=== PATIENT | female | born 1990 | race Caucasian/White ===

== ENCOUNTER 2017-12-29 06:19 | Emergency (ER) | payer OTHER ==
--- NOTE | 2017-12-29 08:38 | EDM.PDOC ---
ED HPI GENERAL MEDICAL PROBLEM - General Chief Complaint: Respiratory Problem Stated Complaint: NAUSEA, VOMITING, LETHARGY, FLU SYMTPOMS Time Seen by Provider: 12/29/17 08:36 Source of Information: Reports: Patient - History of Present Illness INITIAL COMMENTS - FREE TEXT/NARRATIVE: HISTORY AND PHYSICAL: History of present illness: [Entire family presents with similar symptoms nausea vomiting some intermittent loose stools and general malaise No fever chills sweats no chest pain shortness breath headache dizziness palpitation no bowel or urine symptoms at current, mom is had symptoms for 3 days slowly improving she had had some nausea and episodes of vomiting since Friday today is Friday she is able to keep oatmeal breakfast down without any problem she is not ill appearing and seems to be improving symptomatically after 48 hours of symptoms. This in general goes along with the father symptoms as well who symptomology is not resolved completely ] Review of systems: As per history of present illness and below otherwise all systems reviewed and negative. Past medical history: As per history of present illness and as reviewed below otherwise noncontributory. Surgical history: As per history of present illness and as reviewed below otherwise noncontributory. Social history: No reported history of drug or alcohol abuse. Family history: As per history of present illness and as reviewed below otherwise noncontributory. Physical exam: HEENT: Atraumatic, normocephalic, pupils reactive, negative for conjunctival pallor or scleral icterus, mucous membranes moist, throat clear, neck supple, nontender, trachea midline. Lungs: Clear to auscultation, breath sounds equal bilaterally, chest nontender. Heart: S1S2, regular, negative for clicks, rubs, or JVD. Abdomen: Soft, nondistended, nontender. Negative for masses or hepatosplenomegaly. Negative for costovertebral tenderness. Pelvis: Stable nontender. Genitourinary: Deferred. Rectal: Deferred. Extremities: Atraumatic, negative for cords or calf pain. Neurovascular unremarkable. Neuro: Awake, alert, oriented. Cranial nerves II through XII unremarkable. Cerebellum unremarkable. Motor and sensory unremarkable throughout. Exam nonfocal. Diagnostics: [Influenza Chest 2 views ] Therapeutics: [Rest fluids nutrition Zofran ] Impression: [Viral syndrome] Definitive disposition and diagnosis as appropriate pending reevaluation and review of above. 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: Neurological History: Reports: None Psychiatric History: Reports: None Endocrine/Metabolic History: Reports: None Hematologic History: Reports: None Oncologic (Cancer) History: Reports: None Dermatologic History: Reports: None - Infectious Disease History Infectious Disease History: Reports: None - Past Surgical History Female Surgical History: Reports: Section Social & Family History - Family History Family Medical History: Noncontributory - Tobacco Use Smoking Status *Q: Never Smoker - Recreational Drug Use Recreational Drug Use: No ED ROS GENERAL - Review of Systems Review Of Systems: ROS reveals no pertinent complaints other than HPI. ED EXAM, GENERAL - Physical Exam Exam: See Below Course - Vital Signs Last Recorded V/S: Last Vital Signs Temp 97.6 F 12/29/17 06:19 Pulse 94 12/29/17 06:19 Resp 16 12/29/17 06:19 BP 121/74 12/29/17 06:19 Pulse Ox 98 12/29/17 06:19 - Orders/Labs/Meds Orders: Active Orders 24 hr Category Date Time Status Chest 2V [CR] Stat Exams 12/29/17 06:35 Taken CULTURE STREP A CONFIRMATION [RM] Stat Lab 12/29/17 06:20 Results STREP SCRN A RAPID W CULT CONF [RM] Stat Lab 12/29/17 06:20 Results Departure - Departure Time of Disposition: 08:37 Disposition: Home, Self-Care 01 Condition: Good Clinical Impression: Viral syndrome - Discharge Information Referrals: PCP,None [Primary Care Provider] - Additional Instructions: The following information is given to patients seen in the emergency department who are being discharged to home. This information is to outline your options for follow-up care. We provide all patients seen in our emergency department with a follow-up referral. The need for follow-up, as well as the timing and circumstances, are variable depending upon the specifics of your emergency department visit. If you don't have a primary care physician on staff, we will provide you with a referral. We always advise you to contact your personal physician following an emergency department visit to inform them of the circumstance of the visit and for follow-up with them and/or the need for any referrals to a consulting specialist. The emergency department will also refer you to a specialist when appropriate. This referral assures that you have the opportunity for follow-up care with a specialist. All of these measure are taken in an effort to provide you with optimal care, which includes your follow-up. Under all circumstances we always encourage you to contact your private physician who remains a resource for coordinating your care. When calling for follow-up care, please make the office aware that this follow-up is from your recent emergency room visit. If for any reason you are refused follow-up, please contact the [facility] emergency department at and asked to speak to the emergency department charge nurse.
--- NOTE | 2017-12-29 17:16 | CR ---
EXAM DATE: 12/29/17 PATIENT'S AGE: 27 Patient: SOREN JC Facility: [place], [place] Site . Site : 1990 Study: XRay Chest [id number]/29/2018 7:17:02 AM Ordering Physician: Doctor Whitaker Final Report: INDICATION: Cough, shortness of breath. COMPARISON: none TECHNIQUE: Two view chest. FINDINGS: The lungs are clear. There is no evidence pneumothorax. The heart, mediastinum and pulmonary vessels are of normal size. There is no evidence of pleural fluid. IMPRESSION: Negative chest. Dictated by Charlie Hoffman MD @ Dec 29 2017 7:18AM (Electronic Signature) Report Signed by Proxy. CONOR
== END 2017-12-29 08:36 | disposition home or self-care (01) ==
LOC: MW.ED 06:19
DX: B34.9 Viral infection, unspecified (principal)
CPT/HCPCS: 71046; 71046-26; 87081; 87804; 87880; 99284

== ENCOUNTER 2019-02-23 09:29 | Emergency (ER) | payer OTHER ==
--- NOTE | 2019-02-23 09:50 | EDM.PDOC ---
ED HPI GENERAL MEDICAL PROBLEM - General Chief Complaint: ENT Problem Stated Complaint: SICK Time Seen by Provider: 02/23/19 09:39 - History of Present Illness INITIAL COMMENTS - FREE TEXT/NARRATIVE: HISTORY AND PHYSICAL: History of present illness: Patient 28-year-old white female sensory concern of sore throat cough congestion was also reportedly . She's had no fever chills nausea vomiting or other complaints. She did receive influenza immunization this year Review of systems: As per history of present illness and below otherwise all systems reviewed and negative. Past medical history: As per history of present illness and as reviewed below otherwise noncontributory. Surgical history: As per history of present illness and as reviewed below otherwise noncontributory. Social history: No reported history of drug or alcohol abuse. Family history: As per history of present illness and as reviewed below otherwise noncontributory. Physical exam: HEENT: Atraumatic, normocephalic, pupils reactive, negative for conjunctival pallor or scleral icterus, mucous membranes moist, throat injected, neck supple , nontender, trachea midline. Lungs: Clear to auscultation, breath sounds equal bilaterally, chest nontender. Heart: S1S2, regular, negative for clicks, rubs, or JVD. Abdomen: Soft, nondistended, nontender. Negative for masses or hepatosplenomegaly. Negative for costovertebral tenderness. Pelvis: Stable nontender. Genitourinary: Deferred. Rectal: Deferred. Extremities: Atraumatic, negative for cords or calf pain. Neurovascular unremarkable. Neuro: Awake, alert, oriented. Cranial nerves II through XII unremarkable. Cerebellum unremarkable. Motor and sensory unremarkable throughout. Exam nonfocal. Diagnostics: Rapid strep influenza screen Therapeutics: None Impression: #1 viral syndrome Definitive disposition and diagnosis as appropriate pending reevaluation and review of above. 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 ED EXAM, GENERAL - Physical Exam Exam: See Below (See dictation) Course - Vital Signs Last Recorded V/S: Last Vital Signs Temp 37.4 C 02/23/19 09:58 Pulse 99 02/23/19 09:58 Resp 16 02/23/19 09:58 BP Pulse Ox 98 02/23/19 09:58 - Orders/Labs/Meds Orders: Active Orders 24 hr Category Date Time Status CULTURE STREP A CONFIRMATION [] Stat Lab 02/23/19 10:57 Results STREP SCRN A RAPID W CULT CONF [RM] Stat Lab 02/23/19 10:57 Results Departure - Departure Time of Disposition: 09:49 Disposition: Home, Self-Care 01 Condition: Good Clinical Impression: Viral syndrome, Influenza - Discharge Information Referrals: PCP,Unknown [Primary Care Provider] - Forms: ED Department Discharge Additional Instructions: The following information is given to patients seen in the emergency department who are being discharged to home. This information is to outline your options for follow-up care. We provide all patients seen in our emergency department with a follow-up referral. The need for follow-up, as well as the timing and circumstances, are variable depending upon the specifics of your emergency department visit. If you don't have a primary care physician on staff, we will provide you with a referral. We always advise you to contact your personal physician following an emergency department visit to inform them of the circumstance of the visit and for follow-up with them and/or the need for any referrals to a consulting specialist. The emergency department will also refer you to a specialist when appropriate. This referral assures that you have the opportunity for followup care with a specialist. All of these measure are taken in an effort to provide you with optimal care, which includes your followup. Under all circumstances we always encourage you to contact your private physician who remains a resource for coordinating your care. When calling for followup care, please make the office aware that this follow-up is from your recent emergency room visit. If for any reason you are refused follow-up, please contact the [facility] emergency department at and asked to speak to the emergency department charge nurse. Push fluids Tylenol as directed Ventolin I as directed follow-up private medical doctor/DRY PASTE SUPERVISOR as needed as discussed and return as needed as discussed - My Orders Last 24 Hours: My Active Orders 02/23/19 10:57 CULTURE STREP A CONFIRMATION [RM] Stat STREP SCRN A RAPID W CULT CONF [RM] Stat - Assessment/Plan Last 24 Hours: My Active Orders 02/23/19 10:57 CULTURE STREP A CONFIRMATION [RM] Stat STREP SCRN A RAPID W CULT CONF [RM] Stat
== END 2019-02-23 12:21 | disposition home or self-care (01) ==
LOC: MW.ED 09:29
DX: J11.1 Influenza due to unidentified influenza virus with other respiratory manifestations (principal); Z79.82 Long term (current) use of aspirin; Z79.899 Other long term (current) drug therapy
CPT/HCPCS: 87081; 87804; 87880-QW; 99283

== ENCOUNTER 2019-07-12 05:20 | Inpatient (IN) | payer OTHER ==
[2019-07-12] MEDS ORDERED: Citric Acid/Sodium Citrate Solution 30 ML Cup PO ONE (05:26)
[2019-07-12] MEDS ORDERED: Sodium Chloride 0.9% 10 ML Syringe FLUSH PRN (05:26)
[2019-07-12] MEDS ORDERED: Sodium Chloride 0.9% 2.5 ML Syringe FLUSH PRN (05:26)
[2019-07-12] MEDS ORDERED: Sodium Chloride 0.9% 10 ML SDV IV PRN (05:26)
[2019-07-12] MEDS ORDERED: Ondansetron 4 MG/2 ML SDV IVPUSH PRN ×2 (05:26→08:46)
[2019-07-12] MEDS ORDERED: ceFAZolin 2 GM in Premix Bag 1 BAG IV ONE (05:26)
[2019-07-12] MEDS ORDERED: Oxytocin/0.9 % Sodium Chloride 30 UNIT/500 ML BAG IV SCH (05:30)
[2019-07-12] MEDS ORDERED: Lactated Ringers 1,000 ML IV SCH ×2 (05:30→09:00)
[2019-07-12] MEDS ORDERED: Morphine PF 10 MG/10 ML SDV ONE (07:25)
[2019-07-12] MEDS ORDERED: Oxytocin/0.9 % Sodium Chloride 30 UNIT/500 ML BAG ONE ×2 (07:25→08:40)
[2019-07-12] MEDS ORDERED: Octyl 2-Cyanoacrylate 1 Tube ONE (07:33)
--- NOTE | 2019-07-12 07:54 | PCM.PREANE ---
Preanesthetic Assessment - Anesthesia/Transfusion/Family Hx Anesthesia History: Prior Anesthesia Without Reaction (scheduled for baby with exteriorized heart, dome at [place], vertical uterine incision. No probs with this preg. PMH-neg, no allergies.) Family History of Anesthesia Reaction: No Transfusion History: No Prior Transfusion(s) Other Type of Transfusion Reaction: plan - Review of Systems General: No Symptoms Pulmonary: No Symptoms Cardiovascular: No Symptoms Gastrointestinal: No Symptoms Neurological: No Symptoms Other: Reports: None - Physical Assessment NPO Status Date: 07/11/19 Height: 5 ft 4 in Weight: 70.307 kg ASA Class: 2 Mental Status: Alert & Oriented x3 Airway Class: Mallampati = 2 Dentition: Reports: Normal Dentition (with braces) ROM/Head Extension: Full Lungs: Clear to Auscultation, Normal Respiratory Effort Cardiovascular: Regular Rate, Regular Rhythm - Lab Values: Laboratory Last Values WBC 11.44 K/uL (4.0-11.0) H 07/12/19 05:55 RBC 4.00 M/uL (4.30-5.90) L 07/12/19 05:55 Hgb 12.0 g/dL (12.0-16.0) 07/12/19 05:55 Hct 35.2 % (36.0-46.0) L 07/12/19 05:55 MCV 88.0 fL (80.0-98.0) 07/12/19 05:55 MCH 30.0 pg (27.0-32.0) 07/12/19 05:55 MCHC 34.1 g/dL (31.0-37.0) 07/12/19 05:55 RDW Std Deviation 40.4 fl (28.0-62.0) 07/12/19 05:55 RDW Coeff of [place] 13 % (11.0-15.0) 07/12/19 05:55 Plt Count 193 K/uL (150-400) 07/12/19 05:55 MPV 10.70 fL (7.40-12.00) 07/12/19 05:55 Blood Type B POSITIVE 07/12/19 05:55 Antibody Screen NEGATIVE 07/12/19 05:55 - Allergies Allergies/Adverse Reactions: Allergies Allergy/AdvReac Type Severity Reaction Status Date / Time No Known Allergies Allergy Verified 07/07/19 10:56 - Blood Blood Available: Yes - Anesthesia Plan Pre-Op Medication Ordered: None - Acknowledgements Anesthesia Type Planned: Spinal Pt an Appropriate Candidate for the Planned Anesthesia: Yes Alternatives and Risks of Anesthesia Discussed w Pt/Guardian: Yes Pt/Guardian Understands and Agrees with Anesthesia Plan: Yes PreAnesthesia Questionnaire HEENT History: Reports: None Other HEENT History: wears glasses/contacts, has dental braces Cardiovascular History: Reports: None Respiratory History: Reports: None Other Respiratory History: "mild allergy induced asthma" Gastrointestinal History: Reports: None Other Gastrointestinal History: occasional heartburn during Genitourinary History: Reports: None 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: Musculoskeletal History: Reports: Fracture Other Musculoskeletal History: hx fx ankle Neurological History: Reports: None Other Neuro History: migraines in the past Psychiatric History: Reports: None Endocrine/Metabolic History: Reports: None Hematologic History: Reports: None Immunologic History: Reports: None Oncologic (Cancer) History: Reports: None Dermatologic History: Reports: None - Infectious Disease History Infectious Disease History: Reports: None - Past Surgical History Head Surgeries/Procedures: Reports: None HEENT Surgical History: Reports: Oral Surgery Respiratory Surgical History: Reports: None Female Surgical History: Reports: Section Endocrine Surgical History: Reports: None Musculoskeletal Surgical History: Reports: None Oncologic Surgical History: Reports: None Dermatological Surgical History: Reports: None - SUBSTANCE USE Smoking Status *Q: Never Smoker Second Hand Smoke Exposure: No Recreational Drug Use History: No - HOME MEDS Home Medications: Home Meds Aspirin [Halfprin] 81 mg PO DAILY 02/23/19 [History] #103/Iron Fumarate/Fa [ ] 1 tab PO DAILY 02/23/19 [ History] Loratadine [Children's Allergy Relief] 2 tab CHEW DAILY 07/07/19 [History] Magnesium Citrate 1 tab PO DAILY 07/07/19 [History] Sertraline HCl 50 mg PO DAILY 07/07/19 [History] - CURRENT (IN HOUSE) MEDS Current Meds: Current Medications Lactated Ringer's (Ringers, Lactated) 1,000 mls @ 500 mls/hr IV BOLUS JENNIFER Last Admin: 07/12/19 05:47 Dose: 500 mls/hr Oxytocin/Sodium Chloride (Oxytocin 30 Unit/500 Ml-Ns) 30 unit in 500 mls @ 250 mls/hr IV TITRATE JENNIFER Ondansetron HCl (Zofran) 4 mg IVPUSH Q4H PRN PRN Reason: Nausea/Vomiting Sodium Chloride (Saline Flush) 10 ml FLUSH ASDIRECTED PRN PRN Reason: Keep Vein Open Sodium Chloride (Saline Flush) 2.5 ml FLUSH ASDIRECTED PRN PRN Reason: Keep Vein Open Sodium Chloride (Normal Saline) 10 ml IV ASDIRECTED PRN PRN Reason: IV Use Discontinued Medications Citric Acid/Sodium Citrate (Bicitra Solution) 30 ml PO ONETIME ONE Stop: 07/12/19 05:27 Cefazolin Sodium/Dextrose 2 gm (/ Premix) 50 mls @ 100 mls/hr IV ONETIME ONE Stop: 07/12/19 05:55 Oxytocin/Sodium Chloride (Oxytocin 30 Unit/500 Ml-Ns) Confirm Administered Dose 30 unit in 500 mls @ as directed .ROUTE .STK-MED ONE Stop: 07/12/19 07:26 Morphine Sulfate (Duramorph Pf) Confirm Administered Dose 10 mg .ROUTE .STK-MED ONE Stop: 07/12/19 07:26 Octyl Cyanoacrylate (Dermabond Advance) Confirm Administered Dose 1 applic .ROUTE .STK-MED ONE Stop: 07/12/19 07:34
[2019-07-12] MEDS ORDERED: Ondansetron 4 MG/2 ML SDV ONE (08:05)
[2019-07-12] MEDS ORDERED: Nalbuphine 10 MG/1 ML Vial IVPUSH PRN (08:20)
[2019-07-12] MEDS ORDERED: Acetaminophen/oxyCODONE 325-5 MG Tab PO PRN ×2 (08:20→08:46)
[2019-07-12] MEDS ORDERED: Phenylephrine/Normal Saline 100 MCG/ML 10 ML Syringe ONE (08:29)
[2019-07-12] MEDS ORDERED: ceFAZolin 1 GM Vial ONE (08:37)
[2019-07-12] MEDS ORDERED: Lanolin 100% Cream 7 GM Tube TOP PRN (08:46)
[2019-07-12] MEDS ORDERED: diphenhydrAMINE 50 MG/ML SDV IVPUSH PRN (08:46)
[2019-07-12] MEDS ORDERED: Bisacodyl 10 MG Supp RECTAL PRN (08:46)
--- NOTE | 2019-07-12 09:07 | PCM.OPNOTE ---
- General Post-Op/Procedure Note Date of Surgery/Procedure: 07/12/19 Findings: LTCS delivery of liveborn male . Weight 2790. Apgars 8/9. 3vc. Placenta intact. Pre Op Diagnosis: 37/0 IUP scheduled LTCS s/p classical C section Post-Op Diagnosis: same Anesthesia Technique: Spinal Primary Surgeon: Madai Hodge Glass Cutter: Angy Marshall Role of Glass Cutter: 4th year medical student Fluid Replacement, Intraop: 1,500 Output, Urine Amount: 400 EBL in mLs: 700 Condition: Good
[2019-07-12] MEDS: Ketorolac 30 MG/ML SDV IVPUSH SCH ×3 (09:29→21:00)
[2019-07-12] MEDS: Docusate Sodium 100 MG Cap PO SCH ×2 (10:07→21:00)
--- NOTE | 2019-07-12 11:26 | PCM.POSTAN ---
POST ANESTHESIA ASSESSMENT - MENTAL STATUS Mental Status: Alert, Oriented - RESPIRATORY Respiratory Status: Respiratory Rate WNL, Airway Patent, O2 Saturation Stable - CARDIOVASCULAR CV Status: Pulse Rate WNL, Blood Pressure Stable - GASTROINTESTINAL GI Status: No Symptoms - POST OP HYDRATION Hydration Status: Adequate & Stable
--- NOTE | 2019-07-12 11:44 | OR ---
SURGEON: Madai Hodge M.D. DATE OF PROCEDURE: 07/12/2019 PREOPERATIVE DIAGNOSIS: 37-week intrauterine , breech presentation, prior classical incision. POSTOPERATIVE DIAGNOSIS: 37-week intrauterine , breech presentation, prior classical incision. PROCEDURE: Repeat low-transverse section. PRIMARY SURGEON: Madai Hodge M.D. SCCM ADMINISTRATOR: ASHLEIGH Sánchez. ANESTHESIA: Spinal. ESTIMATED BLOOD LOSS: 400 mL. FLUIDS: 1500 mL crystalloid. URINE OUTPUT: 400 mL. FINDINGS: Live born female. score of 8 and 9, weighing 2790 g. Pavan breech presentation. Very thin anterior uterine wall from prior classical incision. Normal-appearing tubes and ovaries. No significant adhesions. COMPLICATIONS: None known. DISPOSITION: Stable to recovery. BRIEF HISTORY: This is a 29-year-old female. She is G2, P1-0-0-1, who presents at 37 weeks gestation, having received 2 doses of steroids with a prior classical delivery, which was performed due to cardiac anomaly for her last baby. She has otherwise had uncomplicated care. She has had a normal echocardiogram during this . She presents for repeat delivery with risks discussed including bleeding, infection, injury to bowel, bladder, blood vessels or other organs; risk of thromboembolic event and risk of anesthesia. Understanding all these risks, she does desire to proceed. DESCRIPTION OF PROCEDURE: With the patient in left tilt position under adequate spinal analgesia, the abdomen was prepped with chlorhexidine and draped in the usual fashion for abdominal surgery. SCDs were in place. Ortiz catheter had been placed. An appropriate time-out was held. She received 2 g of Ancef IV. After documentation of adequate analgesia with the abdomen appropriately prepped and draped, a transverse curvilinear incision was made 2 cm cephalad from the pubic symphysis and carried through the subcutaneous tissue to the fascia, which was scored transversely in the midline. The fascial incision was extended laterally using curved Gavin scissors. The fascia was elevated from the underlying rectus muscle using sharp and blunt dissection. The rectus muscles were bluntly . A finger was used to enter the peritoneal cavity. The incision was extended using sharp and blunt dissection. The Beni O retractor was placed. The visceroperitoneum was incised inferior to the previous vertical incision and adequate bladder flap was developed. A transverse curvilinear incision was made over the lower uterine segment with a scalpel and extended using blunt dissection. The breech was delivered via the uterine incision and the arms were swept across the chest. The head was flexed and the was delivered via the uterine incision. The was bulb suctioned by nose and mouth. The cord was clamped x2 and cut. The infant was handed to the nurse in attendance at delivery. The infant was a liveborn female. score was 8 and 9, weighing 2790 g. Cord blood was collected for cord ABGs as well as routine cord blood sampling. Pitocin was initiated after delivery of the to assist with delivery of the placenta, which was delivered with fundal massage. The uterus was cleaned with a dry laparotomy tape. The cervix was opened with a ring forceps. The prior vertical incision had extended approximately 4-5 cm from the transverse incision and this was closed with 2 layers of a baseball-type suture of 0 Polysorb followed by a running lock suture of the transverse incision with a 2nd imbricating layer using 0 Polysorb. This being completed, the uterine incision was inspected and was hemostatic. The tubes and ovaries were examined and were normal. The uterine incision was again inspected, it remained hemostatic; therefore, the Beni O retractor was removed. Final inspection revealed hemostasis and the rectus muscle and peritoneum were loosely approximated in the midline using a running mattress suture of 0 Polysorb. The posterior aspect of the fascia was inspected. Any areas of bleeding that were noted were cauterized. The fascia was closed with a running suture of 0 Polysorb. The subcutaneous tissue was irrigated. Any areas of bleeding that were noted were cauterized. The deep subcutaneous tissue was closed with a running suture of 0 Polysorb. Skin was closed with a running subcuticular suture of 3-0 Monocryl followed by Dermabond. Final sponge, needle, and instrument counts were reported as correct. There were no known complications. Mother and are in LDR in good condition with recovery room nurse. MARISSA GALAVIZ /[id number]
[2019-07-13] MEDS: Ketorolac 30 MG/ML SDV IVPUSH SCH ×2 (03:30→09:12)
--- NOTE | 2019-07-13 07:41 | PCM.PNPP ---
<Angy Marshall - Last Filed: 07/13/19 07:37> - General Info Date of Service: 07/13/19 Functional Status: Reports: Pain Controlled, Tolerating Diet, Ambulating, Incentive Spirometry - Review of Systems General: Reports: No Symptoms. Denies: Fever, Chills HEENT: Reports: No Symptoms. Denies: Headaches Pulmonary: Reports: No Symptoms. Denies: Shortness of Breath Cardiovascular: Reports: No Symptoms. Denies: Chest Pain, Palpitations Gastrointestinal: Reports: Abdominal Pain (incisional pain worse while standing up but better after ambulating. Pain meds help) Genitourinary: Reports: No Symptoms. Denies: Dysuria Musculoskeletal: Reports: No Symptoms Skin: Reports: No Symptoms Neurological: Reports: No Symptoms Psychiatric: Reports: No Symptoms - General Info Date of Service: 07/13/19 - Patient Data Vital Signs - Most Recent: Last Vital Signs Temp 97.7 F 07/13/19 04:00 Pulse 75 07/13/19 04:00 Resp 17 07/13/19 04:00 BP 104/53 L 07/13/19 04:00 Pulse Ox 94 L 07/13/19 07:00 Weight - Most Recent: 70.307 kg I&O - Last 24 Hours: Intake & Output 07/12/19 07/13/19 07/13/19 22:59 06:59 14:59 Output Total 1355 1150 400 Balance -1355 -1150 -400 Lab Results - Last 24 Hours: Laboratory Results - last 24 hr 07/12/19 07/13/19 Range/Units 08:15 06:03 Hgb 10.8 L (12.0-16.0) g/dL Hct 32.5 L (36.0-46.0) % Cord ABG pH 7.212 (7.18-7.38) Cord ABG Base Excess -5 (-10--2) Cord VBG pH 7.273 (7.25-7.45) Cord VBG Base Excess -5 (-10--2) Med Orders - Current: Current Medications Bisacodyl (Dulcolax) 10 mg RECTAL ONETIME PRN PRN Reason: Constipation Diphenhydramine HCl (Benadryl) 25 mg IVPUSH Q6H PRN PRN Reason: Itching or Nausea Docusate Sodium (Colace) 100 mg PO BID [facility] Last Admin: 07/12/19 21:00 Dose: 100 mg Emollient Ointment (Lansinoh Hpa) 0 gm TOP ASDIRECTED PRN PRN Reason: Sore Nipples Lactated Ringer's (Ringers, Lactated) 1,000 mls @ 125 mls/hr IV ASDIRECTED [facility] Ibuprofen (Motrin) 800 mg PO Q8H PRN PRN Reason: mild pain or fever Ketorolac Tromethamine (Toradol) 30 mg IVPUSH Q6H [facility] Stop: 07/13/19 09:01 Last Admin: 07/13/19 03:30 Dose: 30 mg Nalbuphine HCl (Nubain) 2.5 mg IVPUSH Q3H PRN PRN Reason: Pruritis Stop: 07/13/19 08:21 Last Admin: 07/12/19 10:05 Dose: 2.5 mg Ondansetron HCl (Zofran) 4 mg IVPUSH Q4H PRN PRN Reason: Nausea/Vomiting Oxycodone/Acetaminophen (Percocet 325-5 Mg) 1 tab PO ONETIME PRN PRN Reason: Pain (moderate 4-6) Oxycodone/Acetaminophen (Percocet 325-5 Mg) 1 tab PO Q4H PRN PRN Reason: Pain (moderate 4-6) Oxycodone/Acetaminophen (Percocet 325-5 Mg) 2 tab PO Q4H PRN PRN Reason: Pain (moderate 4-6) Discontinued Medications Cefazolin Sodium (Ancef) Confirm Administered Dose 2 gm .ROUTE .STK-MED ONE Stop: 07/12/19 08:38 Citric Acid/Sodium Citrate (Bicitra Solution) 30 ml PO ONETIME ONE Stop: 07/12/19 05:27 Cefazolin Sodium/Dextrose 2 gm (/ Premix) 50 mls @ 100 mls/hr IV ONETIME ONE Stop: 07/12/19 05:55 Lactated Ringer's (Ringers, Lactated) 1,000 mls @ 500 mls/hr IV BOLUS [facility] Last Admin: 07/12/19 05:47 Dose: 500 mls/hr Oxytocin/Sodium Chloride (Oxytocin 30 Unit/500 Ml-Ns) 30 unit in 500 mls @ 250 mls/hr IV TITRATE [facility] Oxytocin/Sodium Chloride (Oxytocin 30 Unit/500 Ml-Ns) Confirm Administered Dose 30 unit in 500 mls @ as directed .ROUTE .STK-MED ONE Stop: 07/12/19 07:26 Oxytocin/Sodium Chloride (Oxytocin 30 Unit/500 Ml-Ns) Confirm Administered Dose 30 unit in 500 mls @ as directed .ROUTE .STK-MED ONE Stop: 07/12/19 08:41 Morphine Sulfate (Duramorph Pf) Confirm Administered Dose 10 mg .ROUTE .STK-MED ONE Stop: 07/12/19 07:26 Octyl Cyanoacrylate (Dermabond Advance) Confirm Administered Dose 1 applic .ROUTE .STK-MED ONE Stop: 07/12/19 07:34 Ondansetron HCl (Zofran) 4 mg IVPUSH Q4H PRN PRN Reason: Nausea/Vomiting Ondansetron HCl (Zofran) Confirm Administered Dose 4 mg .ROUTE .STK-MED ONE Stop: 07/12/19 08:06 Phenylephrine HCl (Phenylephrine In Ns 100 Mcg/Ml) Confirm Administered Dose 1 mg .ROUTE .STK-MED ONE Stop: 07/12/19 08:30 Sodium Chloride (Saline Flush) 10 ml FLUSH ASDIRECTED PRN PRN Reason: Keep Vein Open Sodium Chloride (Saline Flush) 2.5 ml FLUSH ASDIRECTED PRN PRN Reason: Keep Vein Open Sodium Chloride (Normal Saline) 10 ml IV ASDIRECTED PRN PRN Reason: IV Use - Infant Interaction Disposition, : [place] in Room with Family Interaction: Holding Infant Infant Feeding: Breastfed Infant; Nursed Well Support Person: - Recovery Exam Fundal Tone: Firm Fundal Level: 3 Fingerbreadths Below Umbilicus Fundal Placement: Midline Lochia Amount: Scant Lochia Color: Rubra/Red Perineum Description: Intact, Minimal Bruising/Swelling Episiotomy/Laceration: None Bladder Status: Voiding Urinary Elimination: Voided - Exam General: Alert, Oriented HEENT: Pupils Equal Neck: Supple Lungs: Clear to Auscultation, Normal Respiratory Effort Cardiovascular: Regular Rate, Regular Rhythm GI/Abdominal Exam: Normal Bowel Sounds, Soft, Non-Tender, No Organomegaly, No Distention, No Abnormal Bruit, No Mass, Pelvis Stable Extremities: Normal Inspection, Normal Range of Motion, Non-Tender, No Pedal Edema, Normal Capillary Refill Skin: Warm, Dry, Intact Wound/Incisions: Dressing Dry and Intact Neurological: No New Focal Deficit Psy/Mental Status: Alert, Normal Affect, Normal Mood - Problem List & Annotations (1) Delivery by section SNOMED Code(s): 321122176 Code(s): IFF6412 - Status: Acute Current Visit: Yes - Problem List Review Problem List Initiated/Reviewed/Updated: Yes - Assessment Assessment:: POD1 s/p LTCS at 37 weeks for prior history of classical C section well Pain controlled Moderate lochia rubra - Plan Plan:: Regular diet Pain control PRN Incentive spirometry Encourage ambulation Routine care Anticipate discharge POD2-3 <Madai Hodge - Last Filed: 07/13/19 08:42> - Patient Data Vital Signs - Most Recent: Last Vital Signs Temp 36.5 C 07/13/19 04:00 Pulse 75 07/13/19 04:00 Resp 17 07/13/19 04:00 BP 104/53 L 07/13/19 04:00 Pulse Ox 94 L 07/13/19 07:00 I&O - Last 24 Hours: Intake & Output 07/12/19 07/13/19 07/13/19 22:59 06:59 14:59 Output Total 1355 1150 400 Balance -1355 -1150 -400 Lab Results - Last 24 Hours: Laboratory Results - last 24 hr 07/12/19 07/13/19 Range/Units 08:15 06:03 Hgb 10.8 L (12.0-16.0) g/dL Hct 32.5 L (36.0-46.0) % Cord ABG pH 7.212 (7.18-7.38) Cord ABG Base Excess -5 (-10--2) Cord VBG pH 7.273 (7.25-7.45) Cord VBG Base Excess -5 (-10--2) Med Orders - Current: Current Medications Bisacodyl (Dulcolax) 10 mg RECTAL ONETIME PRN PRN Reason: Constipation Diphenhydramine HCl (Benadryl) 25 mg IVPUSH Q6H PRN PRN Reason: Itching or Nausea Docusate Sodium (Colace) 100 mg PO BID [facility] Last Admin: 07/12/19 21:00 Dose: 100 mg Emollient Ointment (Lansinoh Hpa) 0 gm TOP ASDIRECTED PRN PRN Reason: Sore Nipples Lactated Ringer's (Ringers, Lactated) 1,000 mls @ 125 mls/hr IV ASDIRECTED [facility] Ibuprofen (Motrin) 800 mg PO Q8H PRN PRN Reason: mild pain or fever Ketorolac Tromethamine (Toradol) 30 mg IVPUSH Q6H [facility] Stop: 07/13/19 09:01 Last Admin: 07/13/19 03:30 Dose: 30 mg Ondansetron HCl (Zofran) 4 mg IVPUSH Q4H PRN PRN Reason: Nausea/Vomiting Oxycodone/Acetaminophen (Percocet 325-5 Mg) 1 tab PO ONETIME PRN PRN Reason: Pain (moderate 4-6) Oxycodone/Acetaminophen (Percocet 325-5 Mg) 1 tab PO Q4H PRN PRN Reason: Pain (moderate 4-6) Oxycodone/Acetaminophen (Percocet 325-5 Mg) 2 tab PO Q4H PRN PRN Reason: Pain (moderate 4-6) Discontinued Medications Cefazolin Sodium (Ancef) Confirm Administered Dose 2 gm .ROUTE .STK-MED ONE Stop: 07/12/19 08:38 Citric Acid/Sodium Citrate (Bicitra Solution) 30 ml PO ONETIME ONE Stop: 07/12/19 05:27 Cefazolin Sodium/Dextrose 2 gm (/ Premix) 50 mls @ 100 mls/hr IV ONETIME ONE Stop: 07/12/19 05:55 Lactated Ringer's (Ringers, Lactated) 1,000 mls @ 500 mls/hr IV BOLUS [facility] Last Admin: 07/12/19 05:47 Dose: 500 mls/hr Oxytocin/Sodium Chloride (Oxytocin 30 Unit/500 Ml-Ns) 30 unit in 500 mls @ 250 mls/hr IV TITRATE [facility] Oxytocin/Sodium Chloride (Oxytocin 30 Unit/500 Ml-Ns) Confirm Administered Dose 30 unit in 500 mls @ as directed .ROUTE .STK-MED ONE Stop: 07/12/19 07:26 Oxytocin/Sodium Chloride (Oxytocin 30 Unit/500 Ml-Ns) Confirm Administered Dose 30 unit in 500 mls @ as directed .ROUTE .STK-MED ONE Stop: 07/12/19 08:41 Morphine Sulfate (Duramorph Pf) Confirm Administered Dose 10 mg .ROUTE .STK-MED ONE Stop: 07/12/19 07:26 Nalbuphine HCl (Nubain) 2.5 mg IVPUSH Q3H PRN PRN Reason: Pruritis Stop: 07/13/19 08:21 Last Admin: 07/12/19 10:05 Dose: 2.5 mg Octyl Cyanoacrylate (Dermabond Advance) Confirm Administered Dose 1 applic .ROUTE .STK-MED ONE Stop: 07/12/19 07:34 Ondansetron HCl (Zofran) 4 mg IVPUSH Q4H PRN PRN Reason: Nausea/Vomiting Ondansetron HCl (Zofran) Confirm Administered Dose 4 mg .ROUTE .STK-MED ONE Stop: 07/12/19 08:06 Phenylephrine HCl (Phenylephrine In Ns 100 Mcg/Ml) Confirm Administered Dose 1 mg .ROUTE .STK-MED ONE Stop: 07/12/19 08:30 Sodium Chloride (Saline Flush) 10 ml FLUSH ASDIRECTED PRN PRN Reason: Keep Vein Open Sodium Chloride (Saline Flush) 2.5 ml FLUSH ASDIRECTED PRN PRN Reason: Keep Vein Open Sodium Chloride (Normal Saline) 10 ml IV ASDIRECTED PRN PRN Reason: IV Use - Problem List & Annotations (1) Previous delivery affecting , delivered SNOMED Code(s): 606470933, 189699605 Code(s): O34.219 - MATERNAL CARE FOR UNSP TYPE SCAR FROM PREVIOUS DEL Status: Acute Current Visit: Yes - Problem List Review Problem List Initiated/Reviewed/Updated: Yes - My Orders Last 24 Hours: My Active Orders 07/12/19 08:46 Acetaminophen/oxyCODONE [Percocet 325-5 MG] 1 tab PO Q4H PRN Acetaminophen/oxyCODONE [Percocet 325-5 MG] 2 tab PO Q4H PRN Bisacodyl [Dulcolax] 10 mg RECTAL ONETIME PRN Ibuprofen [Motrin] 800 mg PO Q8H PRN Lanolin [Lansinoh HPA] See Dose Instructions TOP ASDIRECTED PRN Ondansetron [Zofran] 4 mg IVPUSH Q4H PRN diphenhydrAMINE [Benadryl] 25 mg IVPUSH Q6H PRN Abdominal Binder [OM.PC] Urgent Resuscitation Status Routine 07/12/19 08:47 Patient Status [ADT] Routine Ambulate [RC] PER UNIT ROUTINE Antiembolic Devices [RC] PER UNIT ROUTINE Communication Order [RC] PER UNIT ROUTINE Communication Order [RC] PER UNIT ROUTINE Communication Order [RC] Per Unit Routine Intake and Output [RC] Q12H May Shower [RC] ASDIRECTED RT Incentive Spirometry [RC] Q2HWA Vital Signs [RC] PER UNIT ROUTINE Assess Lochia [WOMSER] Per Unit Routine Assess Uterine Involution [WOMSER] Per Unit Routine Breast Pump [WOMSER] Per Unit Routine Peripheral IV Discontinue [OM.PC] Routine Sequential Compression Device [OM.PC] Per Unit Routine 07/12/19 08:48 Notify Provider Intake and Out [RC] ASDIRECTED Notify Provider Vital Signs [RC] ASDIRECTED 07/12/19 09:00 Docusate Sodium [Colace] 100 mg PO BID Ketorolac [Toradol] 30 mg IVPUSH Q6H Lactated Ringers [Ringers, Lactated] 1,000 ml IV ASDIRECTED 07/12/19 Lunch Regular Diet [DIET] - Assessment Assessment:: Patient was seen and examined by me and I agree with above.
[2019-07-13] MEDS: Docusate Sodium 100 MG Cap PO SCH ×2 (09:12→20:53)
[2019-07-13] MEDS: Acetaminophen/oxyCODONE 325-5 MG Tab PO PRN ×4 (10:47→20:53)
[2019-07-13] MEDS: Ibuprofen 800 MG Tab PO PRN (17:43)
[2019-07-14] MEDS: Ibuprofen 800 MG Tab PO PRN (02:24)
[2019-07-14] MEDS: Acetaminophen/oxyCODONE 325-5 MG Tab PO PRN ×2 (04:56→09:43)
--- NOTE | 2019-07-14 07:24 | PCM.PNPP ---
<Angy Marshall - Last Filed: 07/14/19 07:22> - General Info Date of Service: 07/14/19 Functional Status: Reports: Pain Controlled - Review of Systems General: Reports: No Symptoms. Denies: Fever, Chills HEENT: Reports: No Symptoms. Denies: Headaches Pulmonary: Reports: No Symptoms. Denies: Shortness of Breath Cardiovascular: Reports: No Symptoms. Denies: Chest Pain, Palpitations Gastrointestinal: Reports: Abdominal Pain (Mild incisional pain when ambulating ; moderate cramping with ) Genitourinary: Reports: No Symptoms. Denies: Dysuria Musculoskeletal: Reports: No Symptoms Skin: Reports: No Symptoms Neurological: Reports: No Symptoms Psychiatric: Reports: No Symptoms - General Info Date of Service: 07/14/19 - Patient Data Vital Signs - Most Recent: Last Vital Signs Temp 97.7 F 07/14/19 04:00 Pulse 81 07/14/19 04:00 Resp 15 07/14/19 04:00 BP 114/66 07/14/19 04:00 Pulse Ox 94 L 07/14/19 04:00 Weight - Most Recent: 70.307 kg Med Orders - Current: Current Medications Bisacodyl (Dulcolax) 10 mg RECTAL ONETIME PRN PRN Reason: Constipation Diphenhydramine HCl (Benadryl) 25 mg IVPUSH Q6H PRN PRN Reason: Itching or Nausea Docusate Sodium (Colace) 100 mg PO BID [facility] Last Admin: 07/13/19 20:53 Dose: 100 mg Emollient Ointment (Lansinoh Hpa) 0 gm TOP ASDIRECTED PRN PRN Reason: Sore Nipples Last Admin: 07/13/19 10:07 Dose: 7 gm Lactated Ringer's (Ringers, Lactated) 1,000 mls @ 125 mls/hr IV ASDIRECTED [facility] Ibuprofen (Motrin) 800 mg PO Q8H PRN PRN Reason: mild pain or fever Last Admin: 07/14/19 02:24 Dose: 800 mg Ondansetron HCl (Zofran) 4 mg IVPUSH Q4H PRN PRN Reason: Nausea/Vomiting Oxycodone/Acetaminophen (Percocet 325-5 Mg) 1 tab PO ONETIME PRN PRN Reason: Pain (moderate 4-6) Oxycodone/Acetaminophen (Percocet 325-5 Mg) 1 tab PO Q4H PRN PRN Reason: Pain (moderate 4-6) Last Admin: 07/14/19 04:56 Dose: 1 tab Oxycodone/Acetaminophen (Percocet 325-5 Mg) 2 tab PO Q4H PRN PRN Reason: Pain (moderate 4-6) Discontinued Medications Cefazolin Sodium (Ancef) Confirm Administered Dose 2 gm .ROUTE .STK-MED ONE Stop: 07/12/19 08:38 Citric Acid/Sodium Citrate (Bicitra Solution) 30 ml PO ONETIME ONE Stop: 07/12/19 05:27 Cefazolin Sodium/Dextrose 2 gm (/ Premix) 50 mls @ 100 mls/hr IV ONETIME ONE Stop: 07/12/19 05:55 Lactated Ringer's (Ringers, Lactated) 1,000 mls @ 500 mls/hr IV BOLUS [facility] Last Admin: 07/12/19 05:47 Dose: 500 mls/hr Oxytocin/Sodium Chloride (Oxytocin 30 Unit/500 Ml-Ns) 30 unit in 500 mls @ 250 mls/hr IV TITRATE [facility] Oxytocin/Sodium Chloride (Oxytocin 30 Unit/500 Ml-Ns) Confirm Administered Dose 30 unit in 500 mls @ as directed .ROUTE .STK-MED ONE Stop: 07/12/19 07:26 Oxytocin/Sodium Chloride (Oxytocin 30 Unit/500 Ml-Ns) Confirm Administered Dose 30 unit in 500 mls @ as directed .ROUTE .STK-MED ONE Stop: 07/12/19 08:41 Ketorolac Tromethamine (Toradol) 30 mg IVPUSH Q6H [facility] Stop: 07/13/19 09:01 Last Admin: 07/13/19 09:12 Dose: 30 mg Morphine Sulfate (Duramorph Pf) Confirm Administered Dose 10 mg .ROUTE .STK-MED ONE Stop: 07/12/19 07:26 Nalbuphine HCl (Nubain) 2.5 mg IVPUSH Q3H PRN PRN Reason: Pruritis Stop: 07/13/19 08:21 Last Admin: 07/12/19 10:05 Dose: 2.5 mg Octyl Cyanoacrylate (Dermabond Advance) Confirm Administered Dose 1 applic .ROUTE .STK-MED ONE Stop: 07/12/19 07:34 Ondansetron HCl (Zofran) 4 mg IVPUSH Q4H PRN PRN Reason: Nausea/Vomiting Ondansetron HCl (Zofran) Confirm Administered Dose 4 mg .ROUTE .STK-MED ONE Stop: 07/12/19 08:06 Phenylephrine HCl (Phenylephrine In Ns 100 Mcg/Ml) Confirm Administered Dose 1 mg .ROUTE .STK-MED ONE Stop: 07/12/19 08:30 Sodium Chloride (Saline Flush) 10 ml FLUSH ASDIRECTED PRN PRN Reason: Keep Vein Open Sodium Chloride (Saline Flush) 2.5 ml FLUSH ASDIRECTED PRN PRN Reason: Keep Vein Open Sodium Chloride (Normal Saline) 10 ml IV ASDIRECTED PRN PRN Reason: IV Use - Infant Interaction Disposition, : in Room with Family Interaction: Holding Infant Feeding: Breastfed Infant; Nursed Well Support Person: - Recovery Exam Fundal Tone: Firm Fundal Level: 3 Fingerbreadths Below Umbilicus Fundal Placement: Midline Lochia Amount: Scant Lochia Color: Rubra/Red Perineum Description: Intact, Minimal Bruising/Swelling Episiotomy/Laceration: None Bladder Status: Voiding Urinary Elimination: Voided - Exam General: Alert, Oriented HEENT: Pupils Equal Neck: Supple Lungs: Clear to Auscultation, Normal Respiratory Effort Cardiovascular: Regular Rate, Regular Rhythm GI/Abdominal Exam: Normal Bowel Sounds, Soft, Non-Tender, No Organomegaly, No Distention, No Abnormal Bruit, No Mass, Pelvis Stable Extremities: Normal Inspection, Normal Range of Motion, Non-Tender, No Pedal Edema, Normal Capillary Refill Skin: Warm, Dry, Intact Wound/Incisions: Healing Well Neurological: No New Focal Deficit Psy/Mental Status: Alert, Normal Affect, Normal Mood - Problem List & Annotations (1) Delivery by section SNOMED Code(s): 535630777 Code(s): TFM8000 - Status: Acute Current Visit: Yes - Problem List Review Problem List Initiated/Reviewed/Updated: Yes - Assessment Assessment:: POD2 well Pain well controlled Minimal lochia rubra Would like to discharge home today - Plan Plan:: Regular diet Pain control PRN Incentive spirometry Encourage ambulation Routine care Anticipate discharge POD2-3 <Madai Hodge - Last Filed: 07/14/19 08:00> - Patient Data Vital Signs - Most Recent: Last Vital Signs Temp 36.5 C 07/14/19 04:00 Pulse 81 07/14/19 04:00 Resp 15 07/14/19 04:00 BP 114/66 07/14/19 04:00 Pulse Ox 94 L 07/14/19 04:00 Med Orders - Current: Current Medications Bisacodyl (Dulcolax) 10 mg RECTAL ONETIME PRN PRN Reason: Constipation Diphenhydramine HCl (Benadryl) 25 mg IVPUSH Q6H PRN PRN Reason: Itching or Nausea Docusate Sodium (Colace) 100 mg PO BID [facility] Last Admin: 07/13/19 20:53 Dose: 100 mg Emollient Ointment (Lansinoh Hpa) 0 gm TOP ASDIRECTED PRN PRN Reason: Sore Nipples Last Admin: 07/13/19 10:07 Dose: 7 gm Lactated Ringer's (Ringers, Lactated) 1,000 mls @ 125 mls/hr IV ASDIRECTED [facility] Ibuprofen (Motrin) 800 mg PO Q8H PRN PRN Reason: mild pain or fever Last Admin: 07/14/19 02:24 Dose: 800 mg Ondansetron HCl (Zofran) 4 mg IVPUSH Q4H PRN PRN Reason: Nausea/Vomiting Oxycodone/Acetaminophen (Percocet 325-5 Mg) 1 tab PO ONETIME PRN PRN Reason: Pain (moderate 4-6) Oxycodone/Acetaminophen (Percocet 325-5 Mg) 1 tab PO Q4H PRN PRN Reason: Pain (moderate 4-6) Last Admin: 07/14/19 04:56 Dose: 1 tab Oxycodone/Acetaminophen (Percocet 325-5 Mg) 2 tab PO Q4H PRN PRN Reason: Pain (moderate 4-6) Discontinued Medications Cefazolin Sodium (Ancef) Confirm Administered Dose 2 gm .ROUTE .STK-MED ONE Stop: 07/12/19 08:38 Citric Acid/Sodium Citrate (Bicitra Solution) 30 ml PO ONETIME ONE Stop: 07/12/19 05:27 Cefazolin Sodium/Dextrose 2 gm (/ Premix) 50 mls @ 100 mls/hr IV ONETIME ONE Stop: 07/12/19 05:55 Lactated Ringer's (Ringers, Lactated) 1,000 mls @ 500 mls/hr IV BOLUS [facility] Last Admin: 07/12/19 05:47 Dose: 500 mls/hr Oxytocin/Sodium Chloride (Oxytocin 30 Unit/500 Ml-Ns) 30 unit in 500 mls @ 250 mls/hr IV TITRATE [facility] Oxytocin/Sodium Chloride (Oxytocin 30 Unit/500 Ml-Ns) Confirm Administered Dose 30 unit in 500 mls @ as directed .ROUTE .STK-MED ONE Stop: 07/12/19 07:26 Oxytocin/Sodium Chloride (Oxytocin 30 Unit/500 Ml-Ns) Confirm Administered Dose 30 unit in 500 mls @ as directed .ROUTE .STK-MED ONE Stop: 07/12/19 08:41 Ketorolac Tromethamine (Toradol) 30 mg IVPUSH Q6H [facility] Stop: 07/13/19 09:01 Last Admin: 07/13/19 09:12 Dose: 30 mg Morphine Sulfate (Duramorph Pf) Confirm Administered Dose 10 mg .ROUTE .STK-MED ONE Stop: 07/12/19 07:26 Nalbuphine HCl (Nubain) 2.5 mg IVPUSH Q3H PRN PRN Reason: Pruritis Stop: 07/13/19 08:21 Last Admin: 07/12/19 10:05 Dose: 2.5 mg Octyl Cyanoacrylate (Dermabond Advance) Confirm Administered Dose 1 applic .ROUTE .STK-MED ONE Stop: 07/12/19 07:34 Ondansetron HCl (Zofran) 4 mg IVPUSH Q4H PRN PRN Reason: Nausea/Vomiting Ondansetron HCl (Zofran) Confirm Administered Dose 4 mg .ROUTE .STK-MED ONE Stop: 07/12/19 08:06 Phenylephrine HCl (Phenylephrine In Ns 100 Mcg/Ml) Confirm Administered Dose 1 mg .ROUTE .STK-MED ONE Stop: 07/12/19 08:30 Sodium Chloride (Saline Flush) 10 ml FLUSH ASDIRECTED PRN PRN Reason: Keep Vein Open Sodium Chloride (Saline Flush) 2.5 ml FLUSH ASDIRECTED PRN PRN Reason: Keep Vein Open Sodium Chloride (Normal Saline) 10 ml IV ASDIRECTED PRN PRN Reason: IV Use - Problem List & Annotations (1) Previous delivery affecting , delivered SNOMED Code(s): 392732149, 998586254 Code(s): O34.219 - MATERNAL CARE FOR UNSP TYPE SCAR FROM PREVIOUS DEL Status: Acute Current Visit: Yes - Problem List Review Problem List Initiated/Reviewed/Updated: Yes - Assessment Assessment:: Patient was seen and examined by me and I agree with above. Discharge instructions reviewed, however baby' bilirubin is high risk, if baby stays will hold discharge until tomorrow.
[2019-07-14] MEDS: Docusate Sodium 100 MG Cap PO SCH (09:43)
== END 2019-07-14 10:45 | disposition home or self-care (01) | DRG 788 ==
LOC: MW.OB 05:20
PROVIDERS: ADMIT Obstetrics & Gynecology; ATTEND Obstetrics & Gynecology
PROC: 10D00Z1 Extraction of Products of Conception, Low, Open Approach (ICD-10-PCS; principal; 2019-07-12)
DX: O32.1XX0 Maternal care for breech presentation, not applicable or unspecified (principal); O34.211 Maternal care for low transverse scar from previous cesarean delivery; Z3A.37 37 weeks gestation of pregnancy; Z37.0 Single live birth
CPT/HCPCS: 01961; 36415; 59025; 82803; 85014; 85018; 85027; 86850; 86900; 86901; A9270-GY; J0690; J1885; J2270; J2300; J2370; J2405; J2590; J7120

== ENCOUNTER 2020-01-13 11:19 | Emergency (ER) | payer OTHER ==
--- NOTE | 2020-01-13 12:46 | EDM.PDOC ---
ED HPI GENERAL MEDICAL PROBLEM - General Chief Complaint: Respiratory Problem Stated Complaint: FLU SYMPTOMS Time Seen by Provider: 01/13/20 12:39 Source of Information: Reports: Patient History Limitations: Reports: No Limitations - History of Present Illness INITIAL COMMENTS - FREE TEXT/NARRATIVE: HISTORY AND PHYSICAL: History of present illness: Patient is a [id number] female presents to the ED with complaint of cough, ear ache, sore throat x 1 day. She denies fevers, nausea, vomiting, abdominal pain, diarrhea, chest pain, shortness of breath. Denies significant past medical history. Review of systems: As per history of present illness and below otherwise all systems reviewed and negative. Past medical history: As per history of present illness and as reviewed below otherwise noncontributory. Surgical history: As per history of present illness and as reviewed below otherwise noncontributory. Social history: No reported history of drug or alcohol abuse. Family history: As per history of present illness and as reviewed below otherwise noncontributory. Physical exam: General: Patient sitting comfortably in no acute distress and nontoxic appearing HEENT: Atraumatic, normocephalic, pupils reactive, negative for conjunctival pallor or scleral icterus, mucous membranes moist, throat clear, neck supple, nontender, trachea midline. No meningeal signs. Lungs: Clear to auscultation, breath sounds equal bilaterally, chest nontender. Heart: S1S2, regular, negative for clicks, rubs, or overt murmur. Abdomen: Soft, nondistended, nontender. Negative for masses or hepatosplenomegaly. Negative for costovertebral tenderness. No rigidity, rebound , guarding. Pelvis: Stable nontender. Genitourinary: Deferred. Rectal: Deferred. Extremities: Atraumatic, negative for cords or calf pain. Neurovascular unremarkable. Neuro: Awake, alert, oriented. Cranial nerves II through XII unremarkable. Cerebellum unremarkable. Motor and sensory unremarkable throughout. Exam nonfocal. Notes: Diagnostics: Influenza, rapid strep Therapeutics: none Prescriptions: none Impression: Viral URI Plan: Alternate tylenol and motrin as needed Follow up with primary care provider Return to ED as needed as discussed Definitive disposition and diagnosis as appropriate pending reevaluation and review of above. - Related Data Allergies Allergy/AdvReac Type Severity Reaction Status Date / Time No Known Allergies Allergy Verified 07/07/19 10:56 Home Meds: Home Meds Aspirin [Halfprin] 81 mg PO DAILY 02/23/19 [History] #103/Iron Fumarate/Fa [ ] 1 tab PO DAILY 02/23/19 [ History] Loratadine [Children's Allergy Relief] 2 tab CHEW DAILY 07/07/19 [History] Magnesium Citrate 1 tab PO DAILY 07/07/19 [History] Sertraline HCl 50 mg PO DAILY 07/07/19 [History] Acetaminophen/oxyCODONE [Percocet 325-5 MG] 2 tab PO Q4H PRN 14 Days #20 tablet 07/12/19 [Rx] Ibuprofen [Motrin] 800 mg PO Q8H PRN #30 tablet 07/14/19 [Rx] Past Medical History HEENT History: Reports: None Other HEENT History: wears glasses/contacts, has dental braces Cardiovascular History: Reports: None Respiratory History: Reports: None Other Respiratory History: "mild allergy induced asthma" Gastrointestinal History: Reports: None Other Gastrointestinal History: occasional heartburn during Genitourinary History: Reports: None CARE CLINICIAN History: Reports: Musculoskeletal History: Reports: Fracture Other Musculoskeletal History: hx fx ankle Neurological History: Reports: Migraines Other Neuro History: migraines in the past Psychiatric History: Reports: None Endocrine/Metabolic History: Reports: None Hematologic History: Reports: None Immunologic History: Reports: None Oncologic (Cancer) History: Reports: None Dermatologic History: Reports: None - Infectious Disease History Infectious Disease History: Reports: None - Past Surgical History Head Surgeries/Procedures: Reports: None HEENT Surgical History: Reports: Oral Surgery Respiratory Surgical History: Reports: None Female Surgical History: Reports: Section Endocrine Surgical History: Reports: None Musculoskeletal Surgical History: Reports: None Oncologic Surgical History: Reports: None Dermatological Surgical History: Reports: None Social & Family History - Family History Family Medical History: Noncontributory Cardiac: Reports: Other (See Below) Other Cardiac Family History: varicose veins. Daughter has Pentalogy of Katty GI: Reports: None : Reports: Other (See Below) Other Family History: father of patient: Kidney stones OBGYN: Reports: Musculoskeletal: Reports: Osteoporosis Neurological: Reports: CVA, Dementia Psychiatric: Reports: Other (See Below) Other Psychiatric Family History: Paternal grandmother: alcholism. Endocrine/Metabolic: Reports: Diabetes Mellitus, Type 3c Oncologic: Reports: Breast, Esophageal, Lung - Tobacco Use Smoking Status *Q: Never Smoker - Recreational Drug Use Recreational Drug Use: No ED ROS GENERAL - Review of Systems Review Of Systems: Comprehensive ROS is negative, except as noted in HPI. ED EXAM, GENERAL - Physical Exam Exam: See Below (see dictation) Course - Vital Signs Last Recorded V/S: Last Vital Signs Temp 98.0 F 01/13/20 11:30 Pulse 98 01/13/20 11:30 Resp 18 01/13/20 11:30 BP 113/78 01/13/20 11:30 Pulse Ox 98 01/13/20 11:30 - Orders/Labs/Meds Orders: Active Orders 24 hr Category Date Time Status CULTURE STREP A CONFIRMATION [] Stat Lab 01/13/20 11:35 Results STREP SCRN A RAPID W CULT CONF [RM] Stat Lab 01/13/20 11:35 Results Departure - Departure Time of Disposition: 12:49 Disposition: Home, Self-Care 01 Condition: Good Clinical Impression: Viral URI - Discharge Information Referrals: PCP,None [Primary Care Provider] - Forms: ED Department Discharge Additional Instructions: The following information is given to patients seen in the emergency department who are being discharged to home. This information is to outline your options for follow-up care. We provide all patients seen in our emergency department with a follow-up referral. The need for follow-up, as well as the timing and circumstances, are variable depending upon the specifics of your emergency department visit. If you don't have a primary care physician on staff, we will provide you with a referral. We always advise you to contact your personal physician following an emergency department visit to inform them of the circumstance of the visit and for follow-up with them and/or the need for any referrals to a consulting specialist. The emergency department will also refer you to a specialist when appropriate. This referral assures that you have the opportunity for follow-up care with a specialist. All of these measure are taken in an effort to provide you with optimal care, which includes your follow-up. Under all circumstances we always encourage you to contact your private physician who remains a resource for coordinating your care. When calling for follow-up care, please make the office aware that this follow-up is from your recent emergency room visit. If for any reason you are refused follow-up, please contact the [facility] Emergency Department at and asked to speak to the emergency department charge nurse. [facility] Primary Care [address] [place] [address] [address] Alternate tylenol and motrin as needed Follow up with primary care provider Return to ED as needed as discussed Sepsis Event Note - Evaluation Sepsis Screening Result: No Definite Risk - Focused Exam Vital Signs: Vital Signs Temp Pulse Resp BP Pulse Ox 01/13/20 11:30 98.0 F 98 18 113/78 98 Date Exam was Performed: 01/13/20 Time Exam was Performed: 12:50 - My Orders Last 24 Hours: My Active Orders 01/13/20 11:35 CULTURE STREP A CONFIRMATION [RM] Stat STREP SCRN A RAPID W CULT CONF [RM] Stat - Assessment/Plan Last 24 Hours: My Active Orders 01/13/20 11:35 CULTURE STREP A CONFIRMATION [RM] Stat STREP SCRN A RAPID W CULT CONF [] Stat
== END 2020-01-13 13:10 | disposition home or self-care (01) ==
LOC: MW.ED 11:19
DX: J06.9 Acute upper respiratory infection, unspecified (principal); Z79.82 Long term (current) use of aspirin; Z79.899 Other long term (current) drug therapy
CPT/HCPCS: 87081; 87804; 87880-QW; 99283

== ENCOUNTER 2021-09-25 10:57 | Emergency (ER) | payer BC ==
[2021-09-25] MEDS ORDERED: Sodium Chloride 0.9% 1,000 ML IV ONE (11:27)
[2021-09-25] MEDS ORDERED: Ondansetron 4 MG/2 ML SDV IVPUSH ONE (11:27)
--- NOTE | 2021-09-25 11:32 | EDM.PDOC ---
ED HPI GENERAL MEDICAL PROBLEM - General Chief Complaint: [employer] Problem Stated Complaint: CYST ON LEFT OVARY/NAUSEA Time Seen by Provider: 09/25/21 11:26 Source of Information: Reports: Patient History Limitations: Reports: No Limitations - History of Present Illness INITIAL COMMENTS - FREE TEXT/NARRATIVE: HISTORY AND PHYSICAL: History of present illness: Patient is a 31-year-old female who presents to the emergency room with complaints of left lower quadrant pain and nausea. She states she is currently a few days over 10 weeks gestation, 3 para 2. During her initial [employer] appointment it was noted that she had an ovarian cyst on the left measuring 4.0 cm. Over the past 4 - 5 days she has had left lower quadrant pain with mild nausea. She is concerned the ovarian cyst could be larger or had burst. Patient denies any fever, chills, headache, change in vision, syncope or near syncope. Denies any chest pain, back pain, shortness of breath or cough. Denies any vomiting, diarrhea, constipation or dysuria. Has not noted any blood in urine or stool. No vaginal bleeding, discharge or cramping. Patient has been eating and drinking appropriately. No recent travel or sick contacts. Review of systems: As per history of present illness and below otherwise all systems reviewed and negative. Past medical history: As per history of present illness and as reviewed below otherwise noncontributory. Surgical history: As per history of present illness and as reviewed below otherwise noncontributory. Social history: See social history for further information Family history: As per history of present illness and as reviewed below otherwise noncontributory. Physical exam: General: Well developed and well nourished 31-year-old female. Alert and orie ntated x 3. Nontoxic in appearance and in no acute distress. Vital signs are stable and have been reviewed by me. Nursing notes were reviewed. HEENT: Atraumatic, normocephalic, pupils equal and reactive bilaterally, negative for conjunctival pallor or scleral icterus, mucous membranes moist, TMs normal bilaterally, throat clear, neck supple, nontender, trachea midline. No drooling or trismus noted. No meningeal signs. No hot potato voice noted. Lungs: Clear to auscultation bilaterally. No wheezes, rales, or rhonchi. Chest nontender. Normal work of breathing, no accessory muscles used. Heart: S1S2, regular rate and rhythm without overt murmur, gallops, or rubs. No JVD. No peripheral edema Abdomen: Soft, nondistended, mild left lower quadrant tenderness to palpation. Normoactive bowel sounds. Negative for masses or costovertebral tenderness. Skin: Intact, warm, dry. No lesions or rashes noted. Hematologic: No petechiae or purpra. Mucosa appropriate color and normal nail bed color and refill. Extremities: Atraumatic, moves all extremities per self without difficulty or deficits, negative for cords or calf pain. Neurovascular unremarkable. Neuro: Awake, alert, oriented. Cranial nerves II through XII unremarkable. Cerebellum unremarkable. Motor and sensory unremarkable throughout. Exam nonfocal. Psychiatric: Mood and affect are appropriate. Normal thought process. Answering questions appropriately. Please note that the patient was seen and evaluated during the 2019 SARS-CoV-2 novel coronavirus pandemic period. Community viral transmission is ongoing at time of this encounter and the emergency department is operating under pandemic response procedures. Medical Decision Making: Patient is a 31-year-old female who is approximately 10 weeks with complaints of left lower quadrant pain. She states she has a known ovarian cyst but pain is worsened over the past few days. She denies any vaginal bleeding, discharge or concerns with the viability of her . Rather she is concerned that the ovarian cyst may have grown larger or ruptured. We will get basic lab work and ultrasound at this time. Patient does not appear in any acute distress. Lab work is unremarkable. Ultrasound shows a single viable intrauterine . Gestational age calculated at 10 weeks 3 days. 4.0 cm cyst on the left ovary. Patient does feel improved after the IV fluids and Zofran. I have talked with the patient about today's findings, in addition to providing specific details for plan of care. Reassessment at the time of disposition demonstrates that the patient is in no acute distress. We discussed pain management options, she would like to stick with Tylenol. The patient is stable for discharge, counseling was provided and we discussed in great detail signs a nd symptoms that would prompt them to return to the Emergency Department. Medication, follow up and supportive care measures were reviewed and discussed. Voices understanding and is agreeable to plan of care. Denies any further questions or concerns at this time. Diagnostics: CBC, CMP, UA, Ultrasound Therapeutics: IV fluids, Zofran Prescription: Zofran Impression: Ovarian cysts, left Plan: 1. You were evaluated today on an emergent basis. Your lab work is normal. The cyst is measuring at 4.0cm on the left ovary, otherwise normal. The gestational sac/age is appropriate at 10 weeks and 3 days. 2. You can take Tylenol as needed for pain and fever management. 3. We encourage you to follow up with your OBGYN in the next few days for re- evaluation and further care/management. 4. If your symptoms should worsen, new symptoms develop or any of the signs and symptoms we discussed should arise please return to the emergency room or call 911 (if needed). Definitive disposition and diagnosis as appropriate pending reevaluation and review of above. abdominal Pain Score (Numeric/FACES): 8 - Related Data Allergies Allergy/AdvReac Type Severity Reaction Status Date / Time No Known Allergies Allergy Verified 07/07/19 10:56 Home Meds: Home Meds Aspirin [Halfprin] 81 mg PO DAILY 02/23/19 [History] #103/Iron Fumarate/Fa [ ] 1 tab PO DAILY 02/23/19 [History] Loratadine [Children's Allergy Relief] 2 tab CHEW DAILY 07/07/19 [History] Magnesium Citrate 1 tab PO DAILY 07/07/19 [History] Sertraline HCl 50 mg PO DAILY 07/07/19 [History] Acetaminophen/oxyCODONE [Percocet 325-5 MG] 2 tab PO Q4H PRN 14 Days #20 tablet 07/12/19 [Rx] Ibuprofen [Motrin] 800 mg PO Q8H PRN #30 tablet 07/14/19 [Rx] Ondansetron [Zofran ODT] 4 mg PO Q6H PRN #8 tab.dis 09/25/21 [Rx] Past Medical History HEENT History: Reports: None Other HEENT History: wears glasses/contacts, has dental braces Cardiovascular History: Reports: None Respiratory History: Reports: None Other Respiratory History: "mild allergy induced asthma" Gastrointestinal History: Reports: None Other Gastrointestinal History: occasional heartburn during Genitourinary History: Reports: None [employer] History: Reports: Musculoskeletal History: Reports: Fracture Other Musculoskeletal History: hx fx ankle Neurological History: Reports: Migraines Other Neuro History: migraines in the past Psychiatric History: Reports: None Endocrine/Metabolic History: Reports: None Hematologic History: Reports: None Immunologic History: Reports: None Oncologic (Cancer) History: Reports: None Dermatologic History: Reports: None - Infectious Disease History Infectious Disease History: Reports: None - Past Surgical History Head Surgeries/Procedures: Reports: None HEENT Surgical History: Reports: Oral Surgery Respiratory Surgical History: Reports: None Female Surgical History: Reports: Section Endocrine Surgical History: Reports: None Musculoskeletal Surgical History: Reports: None Oncologic Surgical History: Reports: None Dermatological Surgical History: Reports: None Social & Family History - Family History Family Medical History: No Pertinent Family History Cardiac: Reports: Other (See Below) Other Cardiac Family History: varicose veins. Daughter has Pentalogy of Katty GI: Reports: None : Reports: Other (See Below) Other Family History: father of patient: Kidney stones OBGYN: Reports: Musculoskeletal: Reports: Osteoporosis Neurological: Reports: CVA, Dementia Psychiatric: Reports: Other (See Below) Other Psychiatric Family History: Paternal grandmother: alcholism. Endocrine/Metabolic: Reports: Diabetes Mellitus, Type 3c Oncologic: Reports: Breast, Esophageal, Lung ED ROS GENERAL - Review of Systems Review Of Systems: Comprehensive ROS is negative, except as noted in HPI. ED EXAM, GI/ABD - Physical Exam Exam: See Below (See dictation) Course - Vital Signs Last Recorded V/S: Last Vital Signs Temp 98 F 09/25/21 12:30 Pulse 74 09/25/21 12:30 Resp 18 09/25/21 12:30 BP 91/52 L 09/25/21 12:30 Pulse Ox 98 09/25/21 12:30 - Orders/Labs/Meds Labs: Laboratory Tests 09/25/21 09/25/21 09/25/21 Range/Units 12:43 12:43 12:58 WBC 7.99 (4.0-11.0) K/uL RBC 4.33 (4.30-5.90) M/uL Hgb 13.2 (12.0-16.0) g/dL Hct 38.2 (36.0-46.0) % MCV 88.2 (80.0-98.0) fL MCH 30.5 (27.0-32.0) pg MCHC 34.6 (31.0-37.0) g/dL RDW Std Deviation 45.2 (28.0-62.0) fl RDW Coeff of [place] 14 (11.0-15.0) % Plt Count 204 (150-400) K/uL MPV 9.70 (7.40-12.00) fL Neut % (Auto) 76.4 (48.0-80.0) % Lymph % (Auto) 15.8 L (16.0-40.0) % [place] % (Auto) 7.4 (0.0-15.0) % Eos % (Auto) 0.3 (0.0-7.0) % Baso % (Auto) 0.1 (0.0-1.5) % Neut # (Auto) 6.1 H (1.4-5.7) K/uL Lymph # (Auto) 1.3 (0.6-2.4) K/uL [place] # (Auto) 0.6 (0.0-0.8) K/uL Eos # (Auto) 0.0 (0.0-0.7) K/uL Baso # (Auto) 0.0 (0.0-0.1) K/uL Nucleated RBC % 0.0 /100WBC Nucleated RBCs # 0 K/uL Sodium 136 (136-145) mmol/L Potassium 4.2 (3.5-5.1) mmol/L Chloride 103 (98-107) mmol/L Carbon Dioxide 21.7 (21.0-32.0) mmol/L BUN 9 (7.0-18.0) mg/dL Creatinine 0.6 (0.6-1.0) mg/dL Est Cr Clr Drug Dosing 111.35 mL/min Estimated GFR (MDRD) > 60.0 ml/min Glucose 75 (74-106) mg/dL Calcium 8.8 (8.5-10.1) mg/dL Total Bilirubin 0.3 (0.2-1.0) mg/dL AST 15 (15-37) IU/L ALT 18 (14-63) IU/L Alkaline Phosphatase 56 (46-116) U/L Total Protein 7.6 (6.4-8.2) g/dL Albumin 3.4 (3.4-5.0) g/dL Globulin 4.2 H (2.6-4.0) g/dL Albumin/Globulin Ratio 0.8 L (0.9-1.6) Urine Color YELLOW Urine Appearance CLEAR Urine pH 6.0 (5.0-8.0) Ur Specific [place] 1.010 (1.001-1.035) Urine Protein NEGATIVE (NEGATIVE) mg/dL Urine Glucose (UA) NEGATIVE (NEGATIVE) mg/dL Urine Ketones NEGATIVE (NEGATIVE) mg/dL Urine Occult Blood NEGATIVE (NEGATIVE) Urine Nitrite NEGATIVE (NEGATIVE) Urine Bilirubin NEGATIVE (NEGATIVE) Urine Urobilinogen 0.2 (<2.0) EU/dL Ur Leukocyte Esterase NEGATIVE (NEGATIVE) Meds: Medications Discontinued Medications Generic Name Dose Route Start Last Admin Trade Name Freq PRN Reason Stop Dose Admin Sodium Chloride 1,000 mls @ 999 mls/hr 09/25/21 11:27 09/25/21 13:00 Normal Saline IV 09/25/21 12:27 999 mls/hr STAT ONE Administration Ondansetron HCl 4 mg 09/25/21 11:27 09/25/21 13:00 Ondansetron 4 Mg/2 Ml Sdv IVPUSH 09/25/21 11:28 4 mg ONETIME ONE Administration Departure - Departure Time of Disposition: 14:29 Disposition: Home, Self-Care 01 Clinical Impression: Ovarian cyst Qualifiers: Laterality: left Qualified Code(s): N83.202 - Unspecified ovarian cyst, left side - Discharge Information Prescriptions: Ondansetron [Zofran ODT] 4 mg PO Q6H PRN #8 tab.dis PRN Reason: Nausea Instructions: Ovarian Cyst, [id number] Referrals: Madai Hodge MD [Primary Care Provider] - Forms: ED Department Discharge Additional Instructions: The following information is given to patients seen in the emergency department who are being discharged to home. This information is to outline your options for follow-up care. We provide all patients seen in our emergency department with a follow-up referral. The need for follow-up, as well as the timing and circumstances, are variable depending upon the specifics of your emergency department visit. If you don't have a primary care physician on staff, we will provide you with a referral. We always advise you to contact your personal physician following an emergency department visit to inform them of the circumstance of the visit and for follow-up with them and/or the need for any referrals to a consulting specialist. The emergency department will also refer you to a specialist when appropriate. This referral assures that you have the opportunity for follow-up care with a specialist. All of these measure are taken in an effort to provide you with optimal care, which includes your follow-up. Under all circumstances we always encourage you to contact your private physician who remains a resource for coordinating your care. When calling for follow-up care, please make the office aware that this follow-up is from your recent emergency room visit. If for any reason you are refused follow-up, please contact the [facility] Emergency Department at and asked to speak to the emergency department charge nurse. [facility] Primary Care [address] [place] [id number] [facility] [address] [place] [id number] Thank you for choosing the [facility] emergency department in [place] for your medical needs today. It was a pleasure caring for you. Today you were seen in the emergency department for ovarian cyst pain. Script sent to [facility] for Zofran 1. You were evaluated today on an emergent basis. Your lab work is normal. The cyst is measuring at 4.0 cm on the left ovary, otherwise normal. The gestational sac/age is appropriate at 10 weeks and 3 days. 2. You can take Tylenol as needed for pain and fever management. 3. We encourage you to follow up with your OBGYN in the next few days for re- evaluation and further care/management. 4. If your symptoms should worsen, new symptoms develop or any of the signs and symptoms we discussed should arise please return to the emergency room or call 911 (if needed). Sepsis Event Note (ED) - Focused Exam Vital Signs: Vital Signs Temp Pulse Resp BP Pulse Ox 09/25/21 12:30 98 F 74 18 91/52 L 98
[2021-09-25 13:25] LABS: BLOOD UREA NITROGEN,BUN 9 mg/dL (7.0-18.0); CARBON DIOXIDE,CO2 21.7 mmol/L (21.0-32.0); CHLORIDE,CL 103 mmol/L (98-107); GLUCOSE RANDOM 75 mg/dL (74-106); POTASSIUM,K 4.2 mmol/L (3.5-5.1); SODIUM,NA 136 mmol/L (136-145)
--- NOTE | 2021-09-25 14:20 | US ---
INDICATION: Left lower quadrant pain and early TECHNIQUE: Ultrasound OB pelvis transvaginal. Real-time saenz-scale imaging of the pelvis was performed. COMPARISON: None FINDINGS: Sonographic imaging demonstrates a single living intrauterine gestation. The embryo demonstrates a regular cardiac rate measuring 174 beats per minute. The embryo`s crown rump length measurement of 3.6 cm corresponds to a gestational age of 10 weeks 3 days with a sonographic due date of April 10, 2022. There is a normal appearing yolk sac. There are no gross abnormalities noted within the embryo at this early state of development. The placenta has not yet developed. The gestational sac has a normal appearance and there is no evidence of a perigestational hemorrhage. The amount of fluid within the sac appears appropriate for gestational age. The ovaries are of normal size. 4.0 cm cyst on the left ovary. Normal arterial flow in both kidneys. There are no suspicious fluid collections noted in the cul-de-sac. IMPRESSION: Single viable intrauterine . Gestational age calculated at 10 weeks 3 days. 4.0 cm cyst on the left ovary. Dictated by Ольга Flood MD @ 09/25/2021 2:17:58 PM (Electronically Signed)
== END 2021-09-25 15:30 | disposition home or self-care (01) ==
LOC: MW.ED 10:57
DX: O34.81 Maternal care for other abnormalities of pelvic organs, first trimester (principal); N83.202 Unspecified ovarian cyst, left side; Z3A.10 10 weeks gestation of pregnancy
CPT/HCPCS: 36415; 76801; 80053; 81003; 85025; 96374; 99284; J2405; J7030

== ENCOUNTER 2021-10-05 18:27 | Emergency (ER) | payer BC ==
[2021-10-05 22:06] LABS: BLOOD UREA NITROGEN,BUN 9 mg/dL (7.0-18.0); CARBON DIOXIDE,CO2 25.1 mmol/L (21.0-32.0); CHLORIDE,CL 101 mmol/L (98-107); GLUCOSE RANDOM 88 mg/dL (74-106); POTASSIUM,K 3.6 mmol/L (3.5-5.1); SODIUM,NA 139 mmol/L (136-145)
--- NOTE | 2021-10-05 22:14 | EDM.PDOC ---
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 Denies headache, neck stiff ness, change in vision, syncope, or near syncope. Denies nausea, vomiting, abdominal pain, diarrhea, constipation, or dysuria. Has not noted any blood in urine or stool. Patient has been eating and drinking appropriately. Review of systems: As per history of present illness and below otherwise all systems reviewed and negative. Past medical history: As per history of present illness and as reviewed below otherwise noncontributory. Surgical history: As per history of present illness and as reviewed below otherwise noncontributory. Social history: See social history for further information Family history: As per history of present illness and as reviewed below otherwise noncontributory. Physical exam: General: Patient is alert, oriented, and in no acute distress. Patient sitting comfortably on exam table. Vitals stable and reviewed by me. HEENT: Atraumatic, normocephalic, pupils equal and reactive bilaterally, negative for conjunctival pallor or scleral icterus, mucous membranes moist, throat clear, neck supple, nontender, trachea midline. No drooling or trismus noted. No meningeal signs. No hot potato voice noted. Lungs: Clear to auscultation, breath sounds equal bilaterally, chest nontender. Heart: S1S2, regular rate and rhythm without overt murmur Abdomen: Soft, nondistended, nontender. Negative for masses or hepatosplenomegaly. Negative for costovertebral tenderness. Pelvis: Stable nontender. Genitourinary: Deferred. Rectal: Deferred. Skin: Intact, warm, dry. No lesions or rashes noted. Extremities: Atraumatic, negative for cords or calf pain. Neurovascular unremarkable. Neuro: Awake, alert, oriented. Cranial nerves II through XII unremarkable. Cerebellum unremarkable. Motor and sensory unremarkable throughout. Exam nonfocal. Medical Decision Making: Voices understanding and is agreeable to plan of care. Denies any further questions or concerns at this time. Diagnostics: CBC, CMP, serum hCG quant, transvaginal ultrasound, Rh/blood type Therapeutics: Prescription: Impression: Plan: Definitive disposition and diagnosis as appropriate pending reevaluation and review of above. - Related Data Allergies Allergy/AdvReac Type Severity Reaction Status Date / Time kiwi Allergy Itching Verified 10/05/21 19:23 pineapple Allergy Itching Verified 10/05/21 19:23 Home Meds: Home Meds Aspirin [Halfprin] 81 mg PO DAILY 02/23/19 [History] #103/Iron Fumarate/Fa [ ] 1 tab PO DAILY 02/23/19 [History] Loratadine [Children's Allergy Relief] 2 tab CHEW DAILY 07/07/19 [History] Magnesium Citrate 1 tab PO DAILY 07/07/19 [History] Sertraline HCl 50 mg PO DAILY 07/07/19 [History] Acetaminophen/oxyCODONE [Percocet 325-5 MG] 2 tab PO Q4H PRN 14 Days #20 tablet 07/12/19 [Rx] Ibuprofen [Motrin] 800 mg PO Q8H PRN #30 tablet 07/14/19 [Rx] Ondansetron [Zofran ODT] 4 mg PO Q6H PRN #8 tab.dis 09/25/21 [Rx] Past Medical History HEENT History: Reports: None Other HEENT History: wears glasses/contacts, has dental braces Cardiovascular History: Reports: None Respiratory History: Reports: None Other Respiratory History: "mild allergy induced asthma" Gastrointestinal History: Reports: None Other Gastrointestinal History: occasional heartburn during Genitourinary History: Reports: None 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: Musculoskeletal History: Reports: Fracture Other Musculoskeletal History: hx fx ankle Neurological History: Reports: Migraines Other Neuro History: migraines in the past Psychiatric History: Reports: None Endocrine/Metabolic History: Reports: None Hematologic History: Reports: None Immunologic History: Reports: None Oncologic (Cancer) History: Reports: None Dermatologic History: Reports: None - Infectious Disease History Infectious Disease History: Reports: None - Past Surgical History Head Surgeries/Procedures: Reports: None HEENT Surgical History: Reports: Oral Surgery Respiratory Surgical History: Reports: None GI Surgical History: Reports: None Female Surgical History: Reports: Section Endocrine Surgical History: Reports: None Neurological Surgical History: Reports: None Musculoskeletal Surgical History: Reports: None Oncologic Surgical History: Reports: None Dermatological Surgical History: Reports: None Social & Family History - Family History Family Medical History: No Pertinent Family History Cardiac: Reports: Other (See Below) Other Cardiac Family History: varicose veins. Daughter has Pentalogy of Katty GI: Reports: None : Reports: Other (See Below) Other Family History: father of patient: Kidney stones OBGYN: Reports: Musculoskeletal: Reports: Osteoporosis Neurological: Reports: CVA, Dementia Psychiatric: Reports: Other (See Below) Other Psychiatric Family History: Paternal grandmother: alcholism. Endocrine/Metabolic: Reports: Diabetes Mellitus, Type 3c Oncologic: Reports: Breast, Esophageal, Lung ED ROS GENERAL - Review of Systems Review Of Systems: Comprehensive ROS is negative, except as noted in HPI. ED EXAM, GENERAL - Physical Exam Exam: See Below (see dictation) Course - Vital Signs Last Recorded V/S: Last Vital Signs Temp 99.3 F 10/05/21 19:18 Pulse 79 10/05/21 19:18 Resp 16 10/05/21 19:18 BP 129/78 10/05/21 19:18 Pulse Ox 97 10/05/21 19:18 - Orders/Labs/Meds Orders: Active Orders 24 hr Category Date Time Status OB 1st Tri NT Measure [US] Stat Exams 10/05/21 19:47 Ordered Labs: Laboratory Tests 10/05/21 10/05/21 10/05/21 Range/Units 19:45 21:13 21:13 WBC 8.43 (4.0-11.0) K/uL RBC 4.05 L (4.30-5.90) M/uL Hgb 12.1 (12.0-16.0) g/dL Hct 35.2 L (36.0-46.0) % MCV 86.9 (80.0-98.0) fL MCH 29.9 (27.0-32.0) pg MCHC 34.4 (31.0-37.0) g/dL RDW Std Deviation 43.9 (28.0-62.0) fl RDW Coeff of [place] 14 (11.0-15.0) % Plt Count 216 (150-400) K/uL MPV 9.70 (7.40-12.00) fL Neut % (Auto) 67.7 (48.0-80.0) % Lymph % (Auto) 25.4 (16.0-40.0) % [place] % (Auto) 6.0 (0.0-15.0) % Eos % (Auto) 0.8 (0.0-7.0) % Baso % (Auto) 0.1 (0.0-1.5) % Neut # (Auto) 5.7 (1.4-5.7) K/uL Lymph # (Auto) 2.1 (0.6-2.4) K/uL [place] # (Auto) 0.5 (0.0-0.8) K/uL Eos # (Auto) 0.1 (0.0-0.7) K/uL Baso # (Auto) 0.0 (0.0-0.1) K/uL Nucleated RBC % 0.0 /100WBC Nucleated RBCs # 0 K/uL Sodium 139 (136-145) mmol/L Potassium 3.6 (3.5-5.1) mmol/L Chloride 101 (98-107) mmol/L Carbon Dioxide 25.1 (21.0-32.0) mmol/L BUN 9 (7.0-18.0) mg/dL Creatinine 0.6 (0.6-1.0) mg/dL Est Cr Clr Drug Dosing TNP Estimated GFR (MDRD) > 60.0 ml/min Glucose 88 (74-106) mg/dL Calcium 9.2 (8.5-10.1) mg/dL Total Bilirubin 0.2 (0.2-1.0) mg/dL AST 11 L (15-37) IU/L ALT 17 (14-63) IU/L Alkaline Phosphatase 55 (46-116) U/L Total Protein 7.2 (6.4-8.2) g/dL Albumin 3.5 (3.4-5.0) g/dL Globulin 3.7 (2.6-4.0) g/dL Albumin/Globulin Ratio 0.9 (0.9-1.6) HCG, Quant 62691.0 mIU/mL Urine Color YELLOW Urine Appearance CLEAR Urine pH 6.0 (5.0-8.0) Ur Specific [place] 1.010 (1.001-1.035) Urine Protein NEGATIVE (NEGATIVE) mg/dL Urine Glucose (UA) NEGATIVE (NEGATIVE) mg/dL Urine Ketones NEGATIVE (NEGATIVE) mg/dL Urine Occult Blood TRACE-INTACT H (NEGATIVE) Urine Nitrite NEGATIVE (NEGATIVE) Urine Bilirubin NEGATIVE (NEGATIVE) Urine Urobilinogen 0.2 (<2.0) EU/dL Ur Leukocyte Esterase NEGATIVE (NEGATIVE) Urine RBC 0-1 (0-2/HPF) Urine WBC 0-1 (0-5/HPF) Ur Epithelial Cells RARE (NONE-FEW) Urine Bacteria FEW (NEGATIVE) Blood Type 10/05/21 Range/Units 21:13 WBC (4.0-11.0) K/uL RBC (4.30-5.90) M/uL Hgb (12.0-16.0) g/dL Hct (36.0-46.0) % MCV (80.0-98.0) fL MCH (27.0-32.0) pg MCHC (31.0-37.0) g/dL RDW Std Deviation (28.0-62.0) fl RDW Coeff of [place] (11.0-15.0) % Plt Count (150-400) K/uL MPV (7.40-12.00) fL Neut % (Auto) (48.0-80.0) % Lymph % (Auto) (16.0-40.0) % [place] % (Auto) (0.0-15.0) % Eos % (Auto) (0.0-7.0) % Baso % (Auto) (0.0-1.5) % Neut # (Auto) (1.4-5.7) K/uL Lymph # (Auto) (0.6-2.4) K/uL [place] # (Auto) (0.0-0.8) K/uL Eos # (Auto) (0.0-0.7) K/uL Baso # (Auto) (0.0-0.1) K/uL Nucleated RBC % /100WBC Nucleated RBCs # K/uL Sodium (136-145) mmol/L Potassium (3.5-5.1) mmol/L Chloride (98-107) mmol/L Carbon Dioxide (21.0-32.0) mmol/L BUN (7.0-18.0) mg/dL Creatinine (0.6-1.0) mg/dL Est Cr Clr Drug Dosing Estimated GFR (MDRD) ml/min Glucose (74-106) mg/dL Calcium (8.5-10.1) mg/dL Total Bilirubin (0.2-1.0) mg/dL AST (15-37) IU/L ALT (14-63) IU/L Alkaline Phosphatase (46-116) U/L Total Protein (6.4-8.2) g/dL Albumin (3.4-5.0) g/dL Globulin (2.6-4.0) g/dL Albumin/Globulin Ratio (0.9-1.6) HCG, Quant mIU/mL Urine Color Urine Appearance Urine pH (5.0-8.0) Ur Specific [place] (1.001-1.035) Urine Protein (NEGATIVE) mg/dL Urine Glucose (UA) (NEGATIVE) mg/dL Urine Ketones (NEGATIVE) mg/dL Urine Occult Blood (NEGATIVE) Urine Nitrite (NEGATIVE) Urine Bilirubin (NEGATIVE) Urine Urobilinogen (<2.0) EU/dL Ur Leukocyte Esterase (NEGATIVE) Urine RBC (0-2/HPF) Urine WBC (0-5/HPF) Ur Epithelial Cells (NONE-FEW) Urine Bacteria (NEGATIVE) Blood Type B POSITIVE Departure - Discharge Information Referrals: PCP,None [Primary Care Provider] - Forms: ED Department Discharge Sepsis Event Note (ED) - Evaluation Sepsis Screening Result: No Definite Risk - Focused Exam Vital Signs: Vital Signs Temp Pulse Resp BP Pulse Ox 10/05/21 19:18 99.3 F 79 16 129/78 97
--- NOTE | 2021-10-05 22:59 | EDM.PDOC ---
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 Patient notes mild lower abdominal pain. She this evening passed a large blood clot. She denies any subsequent bleeding. Denies any nausea or vomiting. Had a normal ultrasound at 9 weeks. - Related Data Allergies Allergy/AdvReac Type Severity Reaction Status Date / Time kiwi Allergy Itching Verified 10/05/21 19:23 pineapple Allergy Itching Verified 10/05/21 19:23 Home Meds: Home Meds Aspirin [Halfprin] 81 mg PO DAILY 02/23/19 [History] #103/Iron Fumarate/Fa [ ] 1 tab PO DAILY 02/23/19 [History] Loratadine [Children's Allergy Relief] 2 tab CHEW DAILY 07/07/19 [History] Magnesium Citrate 1 tab PO DAILY 07/07/19 [History] Sertraline HCl 50 mg PO DAILY 07/07/19 [History] Acetaminophen/oxyCODONE [Percocet 325-5 MG] 2 tab PO Q4H PRN 14 Days #20 tablet 07/12/19 [Rx] Ibuprofen [Motrin] 800 mg PO Q8H PRN #30 tablet 07/14/19 [Rx] Ondansetron [Zofran ODT] 4 mg PO Q6H PRN #8 tab.dis 09/25/21 [Rx] Past Medical History HEENT History: Reports: None Other HEENT History: wears glasses/contacts, has dental braces Cardiovascular History: Reports: None Respiratory History: Reports: None Other Respiratory History: "mild allergy induced asthma" Gastrointestinal History: Reports: None Other Gastrointestinal History: occasional heartburn during Genitourinary History: Reports: None 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: Musculoskeletal History: Reports: Fracture Other Musculoskeletal History: hx fx ankle Neurological History: Reports: Migraines Other Neuro History: migraines in the past Psychiatric History: Reports: None Endocrine/Metabolic History: Reports: None Hematologic History: Reports: None Immunologic History: Reports: None Oncologic (Cancer) History: Reports: None Dermatologic History: Reports: None - Infectious Disease History Infectious Disease History: Reports: None - Past Surgical History Head Surgeries/Procedures: Reports: None HEENT Surgical History: Reports: Oral Surgery Respiratory Surgical History: Reports: None GI Surgical History: Reports: None Female Surgical History: Reports: Section Endocrine Surgical History: Reports: None Neurological Surgical History: Reports: None Musculoskeletal Surgical History: Reports: None Oncologic Surgical History: Reports: None Dermatological Surgical History: Reports: None Social & Family History - Family History Family Medical History: No Pertinent Family History Cardiac: Reports: Other (See Below) Other Cardiac Family History: varicose veins. Daughter has Pentalogy of Katty GI: Reports: None : Reports: Other (See Below) Other Family History: father of patient: Kidney stones OBGYN: Reports: Musculoskeletal: Reports: Osteoporosis Neurological: Reports: CVA, Dementia Psychiatric: Reports: Other (See Below) Other Psychiatric Family History: Paternal grandmother: alcholism. Endocrine/Metabolic: Reports: Diabetes Mellitus, Type 3c Oncologic: Reports: Breast, Esophageal, Lung ED ROS GENERAL - Review of Systems Review Of Systems: Comprehensive ROS is negative, except as noted in HPI. ED EXAM, GENERAL - Physical Exam Exam: See Below Exam Limited By: No Limitations General Appearance: Alert, WD/WN, No Apparent Distress Ears: Hearing Grossly Normal Throat/Mouth: Normal Voice, No Airway Compromise Respiratory/Chest: No Respiratory Distress, Lungs Clear, Normal Breath Sounds, No Accessory Muscle Use Cardiovascular: Normal Peripheral Pulses, Regular Rate, Rhythm GI/Abdominal: Soft, Other (Bilateral lower abdominal tenderness palpation without guarding or rebound) Extremities: Normal Inspection Neurological: Alert, Normal Cognition, Normal Gait Psychiatric: Normal Affect, Normal Mood Skin Exam: Warm, Dry, Intact, Normal Color Course - Vital Signs Last Recorded V/S: Last Vital Signs Temp 99.3 F 10/05/21 19:18 Pulse 79 10/05/21 19:18 Resp 16 10/05/21 19:18 BP 129/78 10/05/21 19:18 Pulse Ox 97 10/05/21 19:18 - Orders/Labs/Meds Labs: Laboratory Tests 10/05/21 10/05/21 10/05/21 Range/Units 19:45 21:13 21:13 WBC 8.43 (4.0-11.0) K/uL RBC 4.05 L (4.30-5.90) M/uL Hgb 12.1 (12.0-16.0) g/dL Hct 35.2 L (36.0-46.0) % MCV 86.9 (80.0-98.0) fL MCH 29.9 (27.0-32.0) pg MCHC 34.4 (31.0-37.0) g/dL RDW Std Deviation 43.9 (28.0-62.0) fl RDW Coeff of [place] 14 (11.0-15.0) % Plt Count 216 (150-400) K/uL MPV 9.70 (7.40-12.00) fL Neut % (Auto) 67.7 (48.0-80.0) % Lymph % (Auto) 25.4 (16.0-40.0) % [place] % (Auto) 6.0 (0.0-15.0) % Eos % (Auto) 0.8 (0.0-7.0) % Baso % (Auto) 0.1 (0.0-1.5) % Neut # (Auto) 5.7 (1.4-5.7) K/uL Lymph # (Auto) 2.1 (0.6-2.4) K/uL [place] # (Auto) 0.5 (0.0-0.8) K/uL Eos # (Auto) 0.1 (0.0-0.7) K/uL Baso # (Auto) 0.0 (0.0-0.1) K/uL Nucleated RBC % 0.0 /100WBC Nucleated RBCs # 0 K/uL Sodium 139 (136-145) mmol/L Potassium 3.6 (3.5-5.1) mmol/L Chloride 101 (98-107) mmol/L Carbon Dioxide 25.1 (21.0-32.0) mmol/L BUN 9 (7.0-18.0) mg/dL Creatinine 0.6 (0.6-1.0) mg/dL Est Cr Clr Drug Dosing TNP Estimated GFR (MDRD) > 60.0 ml/min Glucose 88 (74-106) mg/dL Calcium 9.2 (8.5-10.1) mg/dL Total Bilirubin 0.2 (0.2-1.0) mg/dL AST 11 L (15-37) IU/L ALT 17 (14-63) IU/L Alkaline Phosphatase 55 (46-116) U/L Total Protein 7.2 (6.4-8.2) g/dL Albumin 3.5 (3.4-5.0) g/dL Globulin 3.7 (2.6-4.0) g/dL Albumin/Globulin Ratio 0.9 (0.9-1.6) HCG, Quant 50457.0 mIU/mL Urine Color YELLOW Urine Appearance CLEAR Urine pH 6.0 (5.0-8.0) Ur Specific [place] 1.010 (1.001-1.035) Urine Protein NEGATIVE (NEGATIVE) mg/dL Urine Glucose (UA) NEGATIVE (NEGATIVE) mg/dL Urine Ketones NEGATIVE (NEGATIVE) mg/dL Urine Occult Blood TRACE-INTACT H (NEGATIVE) Urine Nitrite NEGATIVE (NEGATIVE) Urine Bilirubin NEGATIVE (NEGATIVE) Urine Urobilinogen 0.2 (<2.0) EU/dL Ur Leukocyte Esterase NEGATIVE (NEGATIVE) Urine RBC 0-1 (0-2/HPF) Urine WBC 0-1 (0-5/HPF) Ur Epithelial Cells RARE (NONE-FEW) Urine Bacteria FEW (NEGATIVE) Blood Type 10/05/21 Range/Units 21:13 WBC (4.0-11.0) K/uL RBC (4.30-5.90) M/uL Hgb (12.0-16.0) g/dL Hct (36.0-46.0) % MCV (80.0-98.0) fL MCH (27.0-32.0) pg MCHC (31.0-37.0) g/dL RDW Std Deviation (28.0-62.0) fl RDW Coeff of [place] (11.0-15.0) % Plt Count (150-400) K/uL MPV (7.40-12.00) fL Neut % (Auto) (48.0-80.0) % Lymph % (Auto) (16.0-40.0) % [place] % (Auto) (0.0-15.0) % Eos % (Auto) (0.0-7.0) % Baso % (Auto) (0.0-1.5) % Neut # (Auto) (1.4-5.7) K/uL Lymph # (Auto) (0.6-2.4) K/uL [place] # (Auto) (0.0-0.8) K/uL Eos # (Auto) (0.0-0.7) K/uL Baso # (Auto) (0.0-0.1) K/uL Nucleated RBC % /100WBC Nucleated RBCs # K/uL Sodium (136-145) mmol/L Potassium (3.5-5.1) mmol/L Chloride (98-107) mmol/L Carbon Dioxide (21.0-32.0) mmol/L BUN (7.0-18.0) mg/dL Creatinine (0.6-1.0) mg/dL Est Cr Clr Drug Dosing Estimated GFR (MDRD) ml/min Glucose (74-106) mg/dL Calcium (8.5-10.1) mg/dL Total Bilirubin (0.2-1.0) mg/dL AST (15-37) IU/L ALT (14-63) IU/L Alkaline Phosphatase (46-116) U/L Total Protein (6.4-8.2) g/dL Albumin (3.4-5.0) g/dL Globulin (2.6-4.0) g/dL Albumin/Globulin Ratio (0.9-1.6) HCG, Quant mIU/mL Urine Color Urine Appearance Urine pH (5.0-8.0) Ur Specific [place] (1.001-1.035) Urine Protein (NEGATIVE) mg/dL Urine Glucose (UA) (NEGATIVE) mg/dL Urine Ketones (NEGATIVE) mg/dL Urine Occult Blood (NEGATIVE) Urine Nitrite (NEGATIVE) Urine Bilirubin (NEGATIVE) Urine Urobilinogen (<2.0) EU/dL Ur Leukocyte Esterase (NEGATIVE) Urine RBC (0-2/HPF) Urine WBC (0-5/HPF) Ur Epithelial Cells (NONE-FEW) Urine Bacteria (NEGATIVE) Blood Type B POSITIVE - Re-Assessments/Exams Free Text/Narrative Re-Assessment/Exam: 10/05/21 22:59 We will follow up labs and ultrasound 10/05/21 23:59 CT scan shows small hemorrhage near the internal cervical os, however, normal intrauterine . I did talked with the PARTS ROOM CLERK on-call for [place] who recommends pelvic rest and follow-up in their office and neck scheduled appointment on . Return to emergency department for heavy bleeding or any new or concerning symptoms. Departure - Departure Time of Disposition: 00:00 Disposition: Home, Self-Care 01 Condition: Good Clinical Impression: Vaginal bleeding during - Discharge Information Instructions: Vaginal Bleeding During , First Trimester Referrals: PCP,None [Primary Care Provider] - Forms: ED Department Discharge Additional Instructions: Your ultrasound shows the fetus in a healthy position. There is a small amount of bleeding near internal cervical os. I spoke with the PARTS ROOM CLERK on-call who recommends pelvic rest (no sexual intercourse) until follow-up with them this . If you have heavy bleeding, abdominal pain please come back to the emergency department. The following information is given to patients seen in the emergency department who are being discharged to home. This information is to outline your options for follow-up care. We provide all patients seen in our emergency department with a follow-up referral. The need for follow-up, as well as the timing and circumstances, are variable depending upon the specifics of your emergency department visit. If you don't have a primary care physician on staff, we will provide you with a referral. We always advise you to contact your personal physician following an emergency department visit to inform them of the circumstance of the visit and for follow-up with them and/or the need for any referrals to a consulting specialist. The emergency department will also refer you to a specialist when appropriate. This referral assures that you have the opportunity for follow-up care with a specialist. All of these measure are taken in an effort to provide you with optimal care, which includes your follow-up. Under all circumstances we always encourage you to contact your private physician who remains a resource for coordinating your care. When calling for follow-up care, please make the office aware that this follow-up is from your recent emergency room visit. If for any reason you are refused follow-up, please contact the [facility] Emergency Department at and asked to speak to the emergency department charge nurse. Please follow up with your primary care physician. If you do not have a primary care physician, see below: [facility] [address] [place] [address] [id number] [facility] [address] [place] [address] [facility] [address] [place] [address] Sepsis Event Note (ED) - Evaluation Sepsis Screening Result: No Definite Risk - Focused Exam Vital Signs: Vital Signs Temp Pulse Resp BP Pulse Ox 10/05/21 19:18 99.3 F 79 16 129/78 97
--- NOTE | 2021-10-05 23:42 | US ---
INDICATION: Vaginal bleeding, 12 weeks gestation TECHNIQUE: Ultrasound OB pelvis transvaginal. Real-time saenz-scale imaging of the pelvis was performed. COMPARISON: September 25, 2021 FINDINGS: Sonographic imaging demonstrates a single living intrauterine gestation. The embryo demonstrates a regular cardiac rate measuring 176 beats per minute. The embryo`s crown rump length measurement of 6.2 cm corresponds to a gestational age of 12 weeks 5 days with a sonographic due date of April 18, 2022. There are no gross abnormalities at this early state of development. The placenta is anterior. No evidence for periplacental hemorrhage. The gestational sac has a normal appearance. The amount of fluid within the sac appears appropriate for gestational age. There may be a small amount of fluid in the lower uterine segment and internal os. The ovaries are of normal size. There is a 5.4 x 2.8 x 4.8 cm cyst on the left ovary. There are no suspicious fluid collections noted in the cul-de-sac. IMPRESSION: Single viable intrauterine . Gestational age calculated at 12 weeks 5 days. Small amount of fluid in the lower uterine segment and internal os may be a small amount of hemorrhage. Consider gynecology consultation. Persistent cyst on the left ovary. Dictated by Ольга Flood MD @ 10/05/2021 11:41:35 PM (Electronically Signed)
== END 2021-10-06 00:10 | disposition home or self-care (01) ==
LOC: MW.ED 18:27
DX: O20.9 Hemorrhage in early pregnancy, unspecified (principal); Z91.018 Allergy to other foods; Z79.82 Long term (current) use of aspirin; Z79.899 Other long term (current) drug therapy; Z3A.12 12 weeks gestation of pregnancy
CPT/HCPCS: 36415; 76801; 76801-26; 80053; 81001; 84702; 85025; 86900; 86901; 99284-25

== ENCOUNTER 2021-11-11 12:58 | Emergency (ER) | payer BC ==
--- NOTE | 2021-11-11 13:11 | EDM.PDOC ---
ED HPI GENERAL MEDICAL PROBLEM - General Chief Complaint: ENT Problem Stated Complaint: SORE THROAT Time Seen by Provider: 11/11/21 13:02 Source of Information: Reports: Patient History Limitations: Reports: No Limitations - History of Present Illness INITIAL COMMENTS - FREE TEXT/NARRATIVE: HISTORY AND PHYSICAL: History of present illness: Patient is a 31 year old female who presents to the ED with complaints of dry nonproductive cough, sore throat, nasal congestion x 5 days. Patient is currently 17 weeks gestation, no complications or concerns (no cramping, bleeding, etc...). Patient denies any fever, chills, headache, change in vision, syncope or near syncope. Denies any chest pain, back pain, or shortness of breath. Denies any abdominal pain, nausea, vomiting, diarrhea, constipation or dysuria. Has not noted any blood in urine or stool. Patient has been eating and drinking appropriately. No recent travel or sick contacts. Review of systems: As per history of present illness and below otherwise all systems reviewed and negative. Past medical history: As per history of present illness and as reviewed below otherwise noncontributory. Surgical history: As per history of present illness and as reviewed below otherwise noncontributory. Social history: See social history for further information Family history: As per history of present illness and as reviewed below otherwise noncontributory. Physical exam: General: Well developed and well nourished 31 year old female. Alert and orientated x 3. Nontoxic in appearance and in no acute distress. Vital signs are stable and have been reviewed by me. Nursing notes were reviewed. HEENT: Atraumatic, normocephalic, pupils equal and reactive bilaterally, negative for conjunctival pallor or scleral icterus, mucous membranes moist, maxillary sinus tenderness bilaterally, TMs normal bilaterally, throat erythematous without exudate or pillar shift, neck supple, nontender, trachea midline. No drooling or trismus noted. No meningeal signs. No hot potato voice noted. Lungs: Clear to auscultation bilaterally. No wheezes, rales, or rhonchi. Chest nontender. Normal work of breathing, no accessory muscles used. Dry nonproductive cough noted. Heart: S1S2, regular rate and rhythm without overt murmur, gallops, or rubs. No JVD. No peripheral edema Abdomen: Soft, nondistended, nontender. No costovertebral tenderness. Skin: Intact, warm, dry. No lesions or rashes noted. Hematologic: No petechiae or purpra. Mucosa appropriate color and normal nail bed color and refill. Extremities: Atraumatic, moves all extremities per self without difficulty or deficits, negative for cords or calf pain. Neurovascular unremarkable. Neuro: Awake, alert, oriented. Cranial nerves II through XII unremarkable. Cerebellum unremarkable. Motor and sensory unremarkable throughout. Exam nonfocal. Psychiatric: Mood and affect are appropriate. Normal thought process. Answering questions appropriately. Please note that the patient was seen and evaluated during the 2019 SARS-CoV-2 novel coronavirus pandemic period. Community viral transmission is ongoing at time of this encounter and the emergency department is operating under pandemic response procedures. Medical Decision Making: Negative strep, COVID and influenza screening. 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 She would like to move forward with antibiotic therapy. Will place on Keflex as this is safe in . She states she has a follow up with her OBGYN next week with Dr Hodge. I have talked with the patient about today's findings, in addition to providing specific details for plan of care. Reassessment at the time of disposition demonstrates that the patient is in no acute distress. The patient is stable for discharge, counseling was provided and we discussed in great detail signs and symptoms that would prompt them to return to the Emergency Department. Medication, follow up and supportive care measures were reviewed and discussed. Voices understanding and is agreeable to plan of care. Denies any further questions or concerns at this time. Diagnostics: Strep, COVID/influenza Therapeutics: None Prescription: Keflex Impression: Pharyngitis Plan: 1. You were evaluated today on an emergent basis. Your strep screening, COVID- 19, influenza are negative. 2. You can alternate Tylenol and ibuprofen as needed for pain and fever management. 3. We encourage you to follow up with your primary care provider and/or recommended specialist in the next few days for re-evaluation and further care/management. 4. If your symptoms should worsen, new symptoms develop or any of the signs and symptoms we discussed should arise please return to the emergency room or call 911 (if needed). Definitive disposition and diagnosis as appropriate pending reevaluation and review of above. Throat Pain Score (Numeric/FACES): 8 - Related Data Allergies Allergy/AdvReac Type Severity Reaction Status Date / Time kiwi Allergy Itching Verified 11/11/21 13:07 pineapple Allergy Itching Verified 11/11/21 13:07 Home Meds: Home Meds Aspirin [Halfprin] 81 mg PO DAILY 02/23/19 [History] #103/Iron Fumarate/Fa [ ] 1 tab PO DAILY 02/23/19 [History] Loratadine [Children's Allergy Relief] 2 tab CHEW DAILY 07/07/19 [History] Magnesium Citrate 1 tab PO DAILY 07/07/19 [History] Sertraline HCl 50 mg PO DAILY 07/07/19 [History] cephALEXin [Keflex] 500 mg PO BID 5 Days #10 cap 11/11/21 [Rx] Past Medical History HEENT History: Reports: None Other HEENT History: wears glasses/contacts, has dental braces Cardiovascular History: Reports: None Respiratory History: Reports: None Other Respiratory History: "mild allergy induced asthma" Gastrointestinal History: Reports: None Other Gastrointestinal History: occasional heartburn during Genitourinary History: Reports: None ELECTRONIC DEVICE REPAIRER History: Reports: Musculoskeletal History: Reports: Fracture Other Musculoskeletal History: hx fx ankle Neurological History: Reports: Migraines Other Neuro History: migraines in the past Psychiatric History: Reports: None Endocrine/Metabolic History: Reports: None Hematologic History: Reports: None Immunologic History: Reports: None Oncologic (Cancer) History: Reports: None Dermatologic History: Reports: None - Infectious Disease History Infectious Disease History: Reports: None - Past Surgical History Head Surgeries/Procedures: Reports: None HEENT Surgical History: Reports: Oral Surgery Respiratory Surgical History: Reports: None GI Surgical History: Reports: None Female Surgical History: Reports: Section Endocrine Surgical History: Reports: None Neurological Surgical History: Reports: None Musculoskeletal Surgical History: Reports: None Oncologic Surgical History: Reports: None Dermatological Surgical History: Reports: None Social & Family History - Family History Family Medical History: No Pertinent Family History Cardiac: Reports: Other (See Below) Other Cardiac Family History: varicose veins. Daughter has Pentalogy of Katty GI: Reports: None : Reports: Other (See Below) Other Family History: father of patient: Kidney stones OBGYN: Reports: Musculoskeletal: Reports: Osteoporosis Neurological: Reports: CVA, Dementia Psychiatric: Reports: Other (See Below) Other Psychiatric Family History: Paternal grandmother: alcholism. Endocrine/Metabolic: Reports: Diabetes Mellitus, Type 3c Oncologic: Reports: Breast, Esophageal, Lung ED ROS ENT - Review of Systems Review Of Systems: Comprehensive ROS is negative, except as noted in HPI. ED EXAM, ENT - Physical Exam Exam: See Below (See dictation) Course - Vital Signs Last Recorded V/S: Last Vital Signs Temp 97.2 F 11/11/21 13:05 Pulse 98 11/11/21 13:05 Resp 20 11/11/21 13:05 BP 118/71 11/11/21 13:05 Pulse Ox 97 11/11/21 13:05 - Orders/Labs/Meds Labs: Laboratory Tests 11/11/21 11/11/21 Range/Units 13:10 13:10 Influenza Type A RNA NEGATIVE (NEGATIVE) Influenza Type B RNA NEGATIVE (NEGATIVE) SARS-CoV-2 RNA (PAVAN) NEGATIVE (NEGATIVE) Group A Strep (PCR) NOT DETECTED (NOT DETECT) Departure - Departure Time of Disposition: 14:03 Disposition: Home, Self-Care 01 Clinical Impression: Acute pharyngitis, unspecified Qualifiers: Pharyngitis/tonsillitis etiology: unspecified etiology Qualified Code(s): J02.9 - Acute pharyngitis, unspecified - Discharge Information Prescriptions: cephALEXin [Keflex] 500 mg PO BID 5 Days #10 cap Instructions: Pharyngitis, [id number] Referrals: Madai Hodge MD [Primary Care Provider] - Forms: ED Department Discharge Additional Instructions: The following information is given to patients seen in the emergency department who are being discharged to home. This information is to outline your options for follow-up care. We provide all patients seen in our emergency department with a follow-up referral. The need for follow-up, as well as the timing and circumstances, are variable depending upon the specifics of your emergency department visit. If you don't have a primary care physician on staff, we will provide you with a referral. We always advise you to contact your personal physician following an emergency department visit to inform them of the circumstance of the visit and for follow-up with them and/or the need for any referrals to a consulting specialist. The emergency department will also refer you to a specialist when appropriate. This referral assures that you have the opportunity for follow-up care with a specialist. All of these measure are taken in an effort to provide you with optimal care, which includes your follow-up. Under all circumstances we always encourage you to contact your private physician who remains a resource for coordinating your care. When calling for follow-up care, please make the office aware that this follow-up is from your recent emergency room visit. If for any reason you are refused follow-up, please contact the [facility] Emergency Department at and asked to speak to the emergency department charge nurse. [facility] [address] [place] [id number] [facility] [address] [place] [id number] Thank you for choosing the [facility] emergency department in [place] for your medical needs today. It was a pleasure caring for you. Today you were seen in the emergency department for sore throat and cough Your prescription was electronically sent to: [facility] 1. You were evaluated today on an emergent basis. Your strep screening, COVID- 19, influenza are negative. 2. You can alternate Tylenol and ibuprofen as needed for pain and fever management. 3. We encourage you to follow up with your primary care provider and/or recommended specialist in the next few days for re-evaluation and further care/management. 4. If your symptoms should worsen, new symptoms develop or any of the signs and symptoms we discussed should arise please return to the emergency room or call 911 (if needed). Sepsis Event Note (ED) - Evaluation Sepsis Screening Result: No Definite Risk - Focused Exam Vital Signs: Vital Signs Temp Pulse Resp BP Pulse Ox 11/11/21 13:05 97.2 F 98 20 118/71 97
[2021-11-11 13:59] LABS: CORONAVIRUS COVID-19 NAA NEGATIVE (NEGATIVE); INFLUENZA A NAA NEGATIVE (NEGATIVE); INFLUENZA B NAA NEGATIVE (NEGATIVE)
== END 2021-11-11 14:50 | disposition home or self-care (01) ==
LOC: MW.ED 12:58
DX: J02.9 Acute pharyngitis, unspecified (principal); Z91.018 Allergy to other foods; Z79.82 Long term (current) use of aspirin; Z79.899 Other long term (current) drug therapy; Z20.822 Contact with and (suspected) exposure to COVID-19
CPT/HCPCS: 0240U; 87651; 99283

== ENCOUNTER 2022-03-25 19:09 | Inpatient (IN) | payer BC ==
[2022-03-25] MEDS ORDERED: Lactated Ringers 1,000 ML IV SCH (21:00)
[2022-03-25] MEDS ORDERED: hydrOXYzine Pamoate 25 MG Cap PO ONE (22:21)
[2022-03-25] MEDS ORDERED: Ondansetron 4 MG/2 ML SDV IVPUSH ONE (22:22)
[2022-03-25] MEDS ORDERED: Terbutaline 1 MG/ML SDV SUBCUT ONE (22:23)
[2022-03-25] MEDS: Lactated Ringers 1,000 ML IV SCH (22:35)
[2022-03-26] MEDS: Lactated Ringers 1,000 ML IV SCH (05:03)
[2022-03-26] MEDS ORDERED: Sodium Chloride 0.9% 20 ML SDV IV PRN (06:15)
[2022-03-26] MEDS ORDERED: Sodium Chloride 0.9% 10 ML Syringe FLUSH PRN (06:15)
[2022-03-26] MEDS ORDERED: Citric Acid/Sodium Citrate Solution 30 ML Cup PO ONE (06:15)
[2022-03-26] MEDS ORDERED: Sodium Chloride 0.9% 2.5 ML Syringe FLUSH PRN (06:15)
[2022-03-26] MEDS ORDERED: Lactated Ringers 1,000 ML IV SCH ×2 (06:15→09:30)
[2022-03-26] MEDS ORDERED: Oxytocin/0.9 % Sodium Chloride 30 UNIT/500 ML BAG IV SCH (06:15)
[2022-03-26] MEDS ORDERED: ceFAZolin 2 GM in Premix Bag 1 BAG IV ONE (06:15)
[2022-03-26] MEDS ORDERED: Octyl 2-Cyanoacrylate 1 Tube ONE (07:39)
[2022-03-26] MEDS ORDERED: Ondansetron 4 MG/2 ML SDV ONE (07:52)
[2022-03-26] MEDS ORDERED: Ketorolac 30 MG/ML SDV ONE (07:52)
[2022-03-26] MEDS ORDERED: Water For Injection, Sterile 20 ML ONE ×2 (07:52→08:42)
[2022-03-26] MEDS ORDERED: ceFAZolin 1 GM Vial ONE (07:52)
[2022-03-26] MEDS ORDERED: Morphine PF 10 MG/10 ML SDV ONE (07:52)
[2022-03-26] MEDS ORDERED: Dexmedetomidine 200 MCG/2 ML SDV ONE (07:52)
[2022-03-26] MEDS ORDERED: Oxytocin 10 Units/1 ML SDV ONE (07:52)
[2022-03-26] MEDS ORDERED: Ondansetron 4 MG/2 ML SDV IVPUSH PRN (09:26)
[2022-03-26] MEDS ORDERED: Bisacodyl 10 MG Supp RECTAL PRN (09:26)
[2022-03-26] MEDS ORDERED: Lanolin 100% Cream 7 GM Tube TOP PRN (09:26)
[2022-03-26] MEDS ORDERED: diphenhydrAMINE 50 MG/ML SDV IVPUSH PRN ×2 (09:26→13:13)
[2022-03-26] MEDS ORDERED: Oxytocin 10 Units/1 ML SDV IM PRN (09:26)
[2022-03-26] MEDS ORDERED: Methylergonovine 0.2 MG/1 ML Amp IM PRN (09:26)
[2022-03-26] MEDS ORDERED: Misoprostol 200 MCG Tab RECTAL PRN (09:26)
[2022-03-26] MEDS ORDERED: Acetaminophen/oxyCODONE 325-5 MG Tab PO PRN (09:26)
[2022-03-26] MEDS ORDERED: Tranexamic Acid 1,000 MG in Sodium Chloride 0.9% 100 ML IV PRN (09:26)
[2022-03-26] MEDS ORDERED: Naloxone 0.4 MG/ML SDV IVPUSH PRN (13:13)
[2022-03-26] MEDS ORDERED: Nalbuphine HCl 10 MG/ 1ML Amp IVPUSH PRN (13:14)
[2022-03-26] MEDS: Ibuprofen 800 MG Tab PO PRN ×2 (14:14→22:23)
[2022-03-26] MEDS: Prenatal Multivitamin with Calcium/Folic Acid/Iron Tab PO SCH (21:07)
[2022-03-26] MEDS: Docusate Sodium 100 MG Cap PO SCH (21:07)
[2022-03-26] MEDS: Sertraline 50 MG Tab PO SCH (21:08)
[2022-03-26] MEDS: Acetaminophen/oxyCODONE 325-5 MG Tab PO PRN (21:08)
[2022-03-27] MEDS: Acetaminophen/oxyCODONE 325-5 MG Tab PO PRN ×4 (03:01→21:34)
[2022-03-27] MEDS: Ibuprofen 800 MG Tab PO PRN (05:49)
[2022-03-27] MEDS ORDERED: Ketorolac 30 MG/ML SDV IVPUSH SCH (08:00)
[2022-03-27] MEDS ORDERED: Sertraline 50 MG Tab PO SCH (09:00)
[2022-03-27] MEDS ORDERED: Prenatal Multivitamin with Calcium/Folic Acid/Iron Tab PO SCH (09:00)
[2022-03-27] MEDS: Docusate Sodium 100 MG Cap PO SCH ×2 (09:58→21:33)
[2022-03-27] MEDS: Ketorolac 30 MG/ML SDV IVPUSH SCH ×2 (12:41→18:44)
[2022-03-27] MEDS: Sodium Chloride 0.65% Nasal Spray 45 ML Bottle NAS PRN ×2 (18:45→21:35)
[2022-03-27] MEDS: Sertraline 50 MG Tab PO SCH (21:34)
[2022-03-27] MEDS: Prenatal Multivitamin with Calcium/Folic Acid/Iron Tab PO SCH (21:34)
[2022-03-28] MEDS: Ketorolac 30 MG/ML SDV IVPUSH SCH ×2 (01:22→06:52)
== END 2022-03-28 13:50 | disposition home or self-care (01) | DRG 540 ==
LOC: MW.OBCHECK 19:09 → MW.OB 19:09 → MW.OBCHECK 03-26 06:15 → MW.OB 03-26 06:15 → OBSVTOIN 03-26 06:16 → MW.OB 03-26 13:43
PROVIDERS: ADMIT Obstetrics & Gynecology; ATTEND Obstetrics & Gynecology
PROC: 10D00Z1 Extraction of Products of Conception, Low, Open Approach (ICD-10-PCS; principal; 2022-03-26)
DX: O60.14X0 Preterm labor third trimester with preterm delivery third trimester, not applicable or unspecified (principal); O34.212 Maternal care for vertical scar from previous cesarean delivery; Z20.822 Contact with and (suspected) exposure to COVID-19; O99.354 Diseases of the nervous system complicating childbirth; G43.909 Migraine, unspecified, not intractable, without status migrainosus; Z37.0 Single live birth; O99.344 Other mental disorders complicating childbirth; F32.A Depression, unspecified; F43.10 Post-traumatic stress disorder, unspecified; O14.94 Unspecified pre-eclampsia, complicating childbirth; Z3A.36 36 weeks gestation of pregnancy; Z86.16 Personal history of COVID-19
CPT/HCPCS: 36415; 59025; 81003; 82803; 85014; 85018; 85027; 86592; 86850; 86900; 86901; A9270-GY; J0690; J1885; J2274; J2370; J2405; J2590; J3105; J7120; U0002

== ENCOUNTER 2022-07-14 23:28 | Emergency (ER) | payer BC ==
[2022-07-14] MEDS ORDERED: Ondansetron 4 MG/2 ML SDV IVPUSH ONE (23:43)
[2022-07-14] MEDS ORDERED: Lactated Ringers 1,000 ML IV ONE (23:43)
[2022-07-14] MEDS ORDERED: methylPREDNISolone Sodium Succinate 125 MG/2 ML SDV IVPUSH ONE (23:43)
[2022-07-14] MEDS ORDERED: diphenhydrAMINE 50 MG/ML SDV IVPUSH ONE (23:43)
[2022-07-14] MEDS ORDERED: Famotidine 20 MG/2 ML SDV IVPUSH ONE (23:44)
[2022-07-15 00:41] LABS: CARBON DIOXIDE,CO2 21.3 mmol/L (21.0-32.0)
== END 2022-07-15 03:31 | disposition home or self-care (01) ==
LOC: MW.ED 23:28
DX: T78.40XA Allergy, unspecified, initial encounter (principal); Z91.018 Allergy to other foods; Z79.899 Other long term (current) drug therapy; Z86.16 Personal history of COVID-19
CPT/HCPCS: 36415; 80053; 85025; 96374; 96375; 99283; J1200; J2405; J2930; J3490; J7120

== ENCOUNTER 2022-07-26 16:33 | Emergency (ER) | payer BC ==
[2022-07-26] MEDS ORDERED: methylPREDNISolone Sodium Succinate 125 MG/2 ML SDV IVPUSH ONE (16:38)
[2022-07-26] MEDS ORDERED: Famotidine 20 MG/2 ML SDV IVPUSH ONE (16:38)
[2022-07-26] MEDS ORDERED: diphenhydrAMINE 50 MG/ML SDV IVPUSH ONE (16:38)
== END 2022-07-26 18:08 | disposition home or self-care (01) ==
LOC: MW.ED 16:33
DX: T78.1XXA Other adverse food reactions, not elsewhere classified, initial encounter (principal); Z91.040 Latex allergy status; Z91.018 Allergy to other foods; Z86.16 Personal history of COVID-19
CPT/HCPCS: 96374; 96375; 99283; J1200; J2930; J3490